=== PATIENT | male | born 1955 ===

== ENCOUNTER 2018-10-01 12:22 | Inpatient (IN) | payer OTHER ==
--- NOTE | 2018-10-01 13:36 | US ---
Right lower extremity ultrasound. Indication: Rule out DVT Technique: Duplex ultrasound evaluation of the right lower extremity Comparison: None available Findings: There is normal flow, compressibility, and augmentation of the right common femoral, femoral, and popliteal veins. Right posterior tibial veins appear patent. Soft tissue edema. Impression: Soft tissue edema. No evidence of deep venous thrombosis in the right lower extremity.
[2018-10-01 13:58] LABS: BASO % 0.3 % (0.0-2.0); EOS # 0.1 K/uL (0.0-0.7); EOS % 1.2 % (0.0-4.0); HEMOGLOBIN 10.6 g/dL (12.0-18.0); LYMPH # 0.7 K/uL (1.0-4.3); LYMPH % 13.1 % (20.0-40.0); MEAN CELL VOLUME 98.1 fl (80.0-94.0); MEAN CORPUSCULAR HEMOGLOBIN 32.8 pg (27.0-31.0); MEAN CORPUSCULAR HGB CONC 33.5 g/dL (33.0-37.0); MEAN PLATELET VOLUME 8.3 fl (7.2-11.7); MONO # 0.4 K/uL (0.0-0.8); NEUT % 77.4 % (50.0-75.0); NRBC % 0.1 % (0.0-0.0); RBC 3.23 Mil/uL (4.40-5.90); RED CELL DISTRIBUTION WIDTH 15.1 % (11.5-14.5); WHITE BLOOD COUNT 5.1 K/uL (4.8-10.8)
[2018-10-01 14:01] LABS: INR 1.4; PROTHROMBIN TIME 15.8 Seconds (9.8-13.1)
[2018-10-01 14:03] LABS: PARTIAL THROMBOPLASTIN TIME 31.4 Seconds (25.6-37.1)
[2018-10-01 14:05] LABS: URINE BILIRUBIN NEGATIVE (NEGATIVE); URINE BLOOD NEGATIVE (NEGATIVE); URINE CLARITY CLEAR (Clear); URINE COLOR STRAW (YELLOW); URINE GLUCOSE (UA) NEG (Normal); URINE LEUKOCYTE ESTERASE NEG Leu/uL (Negative); URINE PROTEIN NEGATIVE (NEGATIVE); URINE UROBILINOGEN 0.2-1.0 mg/dL (0.2-1.0)
[2018-10-01 14:14] LABS: ALB/GLOB RATIO 0.9 (1.0-2.1); ALT/SGPT 51 U/L (21-72); AST/SGOT 29 U/L (17-59); BLOOD UREA NITROGEN 26 mg/dl (9-20); CALCIUM 8.4 mg/dL (8.4-10.2); GFR NON-AFRICAN AMERICAN > 60
--- NOTE | 2018-10-01 14:53 | ED PDOC ---
Lower Extremity Pain/Injury Time Seen by Provider: 10/01/18 12:29 Chief Complaint (Nursing): Lower Extremity Problem/Injury Chief Complaint (Provider): Lower Extremity Problem/Injury History Per: Patient History/Exam Limitations: no limitations Onset/Duration Of Symptoms: Days (x1 day ) Current Symptoms Are (Timing): Still Present Pain Scale Rating Of: 5 Additional Complaint(s): Nabor Schaeffer is 63 year old male with no past medical history, who presents to the emergency department after being sent by Dr. Boss due to new onset of redness and pain to the right lower extremity. Patient's family is bedside, who stated that patient noticed swelling to the legs yesterday, x1 day ago, associated with pain when ambulating. He rates the pain as a 5/10 that is worsened when walking. Family states that prior to yesterday, symptoms were fine. Patient has a note from the doctor who states that he is being sent to rule out hepatorenal syndrome vs. cellulitis. Patient denies having any chest pain, shortness of breath, fever, nausea, vomiting, or any other new symptoms. PMD: Dean Boss Past Medical History Reviewed: Historical Data, Nursing Documentation, Vital Signs Vital Signs: Last Vital Signs Temp 98.0 F 10/01/18 12:24 Pulse 82 10/01/18 12:24 Resp 20 10/01/18 12:24 BP 88/58 L 10/01/18 12:24 Pulse Ox 97 10/01/18 12:24 - Medical History PMH: No Chronic Diseases - Surgical History Surgical History: No Surg Hx - Family History Family History: States: Unknown Family Hx - Home Medications Home Medications: Ambulatory Orders Medication Instructions Recorded Acidoph/L.bulg/Bif.b/S.thermop 1 tab PO BID 10/01/18 [Bacid Caplet] Furosemide [Lasix] 40 mg PO BID 10/01/18 Hydroxyzine HCl 25 mg PO Q6 PRN 10/01/18 Multivitamin [Multi-Vitamin Daily] 1 tab PO DAILY 10/01/18 RX: Ferrous Sulfate [Ferosul] 325 mg PO Q8 10/01/18 RX: Spironolactone [Aldactone] 50 mg PO BID 10/01/18 RX: Ursodiol [Zohra] 250 mg PO Q6 10/01/18 RX: Vitamin B Complex [Super B-50 1 cap PO DAILY 10/01/18 Complex] S-Adenosylmethionine Sul Tosyl 400 mg PO DAILY 10/01/18 [Dandy-E] Tamsulosin [Flomax] 0.4 mg PO QPM 10/01/18 Zolpidem [Ambien] 10 mg PO HS 10/01/18 - Allergies Allergies/Adverse Reactions: Allergies Allergy/AdvReac Type Severity Reaction Status Date / Time No Known Allergies Allergy Verified 10/01/18 12:27 Review of Systems ROS Statement: Except As Marked, All Systems Reviewed And Found Negative Constitutional: Negative for: Fever Cardiovascular: Negative for: Chest Pain Respiratory: Negative for: Shortness of Breath Gastrointestinal: Negative for: Nausea, Vomiting Musculoskeletal: Positive for: Other (Redness, pain, and swelling to the RLE) Physical Exam - Reviewed Nursing Documentation Reviewed: Yes Vital Signs Reviewed: Yes - Physical Exam Appears: Positive for: Well, No Acute Distress Head Exam: Positive for: ATRAUMATIC, NORMOCEPHALIC Cardiovascular/Chest: Positive for: Regular Rate, Rhythm. Negative for: Murmur Respiratory: Positive for: Normal Breath Sounds. Negative for: Respiratory Distress Pulses-Dorsalis Pedis (L): 2+ Pulses-Dorsalis Pedis (R): 2+ Pulses-Post. Tibialis (L): 2+ Pulses-Post. Tibialis (R): 2+ Gastrointestinal/Abdominal: Positive for: Normal Exam, Soft. Negative for: Tenderness Extremity: Positive for: Tenderness (right lowe extremtiy; (-) ttp behind the knee ), Swelling (Right lower extremity), Other (erythema on right lower extremity extending from medial malleolus to knee and is worse on the medial anterior leg) - Laboratory Results Result Diagrams: 10/01/18 13:30 10/01/18 13:30 - ECG O2 Sat by Pulse Oximetry: 97 (RA) Pulse Ox Interpretation: Normal Medical Decision Making Medical Decision Making: Initial time: 12:37 A/P: Patient was sent for referral for most likely cellulitis. Provider will send out for Ultrasound to rule out DVT and labs. Patient will be admitted to Dr. Tomlinson once results are back. Plan: --EKG --Blood culture --Albumin --CMP --CBC with differential --PTT --PT --Urinalysis --Duplex Lower extremity vein right US Time: 13:32 US Findings: There is normal flow, compressibility, and augmentation of the right common femoral, femoral, and popliteal veins. Right posterior tibial veins appear patent. Soft tissue edema. Impression: Soft tissue edema. No evidence of deep venous thrombosis in the right lower extremity. ---- Labs WNL. Pt started on antibiotics. US showed no evidence of DVT. Cultures pending. Spoke with Dr. Tomlinson and pt to be admitted and will get follow up with infectious disease on the floors. Scribe Attestation: Documented by Dilshad Pa , acting as a scribe for Ashley Pineda MD Provider Scribe Attestation: All medical record entries made by the Scribe were at my direction and personally dictated by me. I have reviewed the chart and agree that the record accurately reflects my personal performance of the history, physical exam, medical decision making, and the department course for this patient Disposition - Clinical Impression Clinical Impression: Cellulitis - Disposition Disposition Time: 16:45 Condition: GUARDED
[2018-10-01] MEDS ORDERED: Vancomycin 1 g Inj ONE (16:21)
[2018-10-01] MEDS ORDERED: Alum-Mag Hydrox-Simethicone Susp (30 mL) PO PRN (16:46)
--- NOTE | 2018-10-01 19:16 | CP.PCM.PN ---
Subjective - Date & Time of Evaluation Date of Evaluation: 10/01/18 Time of Evaluation: 19:16 - Subjective Subjective: I D NOTE INITIAL ANTIBIOTIC ORDERS GIVEN FULL CONSULT TO FOLLOW Objective - Vital Signs/Intake and Output Vital Signs (last 24 hours): Temp Pulse Resp BP Pulse Ox 98.0 F 82 20 88/58 L 97 10/01/18 12:24 10/01/18 12:24 10/01/18 12:24 10/01/18 12:24 10/01/18 15:46 - Medications Medications: Current Medications Acetaminophen (Tylenol 325mg Tab) 650 mg PO Q4 PRN PRN Reason: Pain, moderate (4-7) Al Hydrox/Mg Hydrox/Simethicone (Maalox Plus 30 Ml) 30 ml PO DAILY PRN PRN Reason: Indigestion / Heartburn Docusate Sodium (Colace) 100 mg PO DAILY PRN PRN Reason: Constipation Ferrous Sulfate (Feosol) 325 mg PO Q8 [facility] Furosemide (Lasix) 40 mg PO BID [facility] Home Med (S-Adenosylmethionine Sul Tosyl [Dandy-E]) 400 mg PO DAILY [facility] Home Med (Ursodiol [Zohra]) 250 mg PO Q6 [facility] Home Med (Vitamin B Complex [Super B-50 Complex]) 1 cap PO DAILY [facility] Hydroxyzine HCl (Atarax) 25 mg PO Q6 PRN PRN Reason: Itching / Pruritus Clindamycin Phosphate 600 mg/ (Sodium Chloride) 54 mls @ 54 mls/hr IVPB Q8 [facility]; Protocol Ibuprofen (Motrin Tab) 400 mg PO Q6 PRN PRN Reason: Fever >101 F Multivitamins/Minerals (Therapeutic-M Tab) 1 tab PO DAILY [facility] Ondansetron HCl (Zofran Inj) 4 mg IVP Q4 PRN PRN Reason: Nausea/Vomiting Spironolactone (Aldactone) 50 mg PO BID [facility] Tamsulosin HCl (Flomax) 0.4 mg PO QPM [facility] Zolpidem Tartrate (Ambien) 5 mg PO HS [facility] - Labs Labs: 10/01/18 13:30 10/01/18 13:30 PT 15.8 Seconds (9.8-13.1) H 10/01/18 13:30 INR 1.4 10/01/18 13:30 APTT 31.4 Seconds (25.6-37.1) 10/01/18 13:30
[2018-10-01] MEDS: Clindamycin 600mg/50ml NS 600 MG/50 ML BAG IVPB SCH (20:25)
--- NOTE | 2018-10-01 20:31 | CARD ---
APPROVED REPORT Date of service: 10/01/2018 EKG Measurement Heart [id number] <Conclusion> Normal sinus rhythm Left axis deviation Low voltage QRS Abnormal ECG
[2018-10-01] MEDS: Cefepime 1 GM in Sodium Chloride 0.9% 100 ML IVPB SCH (23:02)
[2018-10-02] MEDS: Clindamycin 600mg/50ml NS 600 MG/50 ML BAG IVPB SCH (02:53)
[2018-10-02] MEDS: Clindamycin 600mg/50ml D5W 600 MG/50 ML VIAL IVPB SCH ×3 (02:57→17:53)
[2018-10-02 06:57] LABS: BASO % 0.4 % (0.0-2.0); EOS # 0.1 K/uL (0.0-0.7); EOS % 1.6 % (0.0-4.0); HEMOGLOBIN 9.5 g/dL (12.0-18.0); LYMPH # 0.7 K/uL (1.0-4.3); LYMPH % 13.7 % (20.0-40.0); MEAN CORPUSCULAR HEMOGLOBIN 32.3 pg (27.0-31.0); MEAN CORPUSCULAR HGB CONC 33.6 g/dL (33.0-37.0); MEAN PLATELET VOLUME 8.4 fl (7.2-11.7); MONO # 0.4 K/uL (0.0-0.8); MONO % 7.8 % (0.0-10.0); NEUT # 3.8 K/uL (1.8-7.0); NEUT % 76.5 % (50.0-75.0); NRBC % 0.1 % (0.0-0.0); RBC 2.94 Mil/uL (4.40-5.90); WHITE BLOOD COUNT 4.9 K/uL (4.8-10.8)
[2018-10-02 07:07] LABS: ALB/GLOB RATIO 0.8 (1.0-2.1); ALBUMIN 2.5 g/dL (3.5-5.0); ALT/SGPT 42 U/L (21-72); AST/SGOT 25 U/L (17-59); BLOOD UREA NITROGEN 23 mg/dl (9-20); CALCIUM 7.8 mg/dL (8.4-10.2); GFR NON-AFRICAN AMERICAN > 60
[2018-10-02] MEDS ORDERED: Patient's Own Med (Vitamin B Complex [Super B-50 Complex] 1 CAP) PO SCH (09:00)
[2018-10-02] MEDS: Cefepime 1 GM in Sodium Chloride 0.9% 100 ML IVPB SCH (09:57)
[2018-10-02] MEDS: Multivitamin With Minerals Tab PO SCH (10:00)
--- NOTE | 2018-10-02 11:18 | CP.PCM.HP ---
<Cornelius Cote - Last Filed: 10/02/18 12:22> History of Present Illness - History of Present Illness History of Present Illness: 63 y/o M with a PMHx of liver cirrhosis and HTN was admitted for evaluation and management of right lower leg cellulitis. Pt was sent to ED by his PCP for RLE e xtremity swellign and redness. Pt explains that redness began 3 days ago, has aggravated rapidly and became painful especially with walking. --Today, pt was seen and examined by bharathi with Dr Tomlinson. Pt reports RLE pain is mild and tolerable. Pt complains of abdominal pain and distension. Pt reports having his last abdominal paracentesis 2-3 years ago. Pt aso reports not having a bowel movement for 2 days. Pt afebrile, tolerating PO with NO acute events overnight. PMD: Dean Marin PMHx: Alcoholic liver cirrhosis and HTN PSHx: appendectomy, cholecystectomy. SHx: last alcoholic intake 4 years ago. Pt stopped smoking 5 years ago. Present on Admission - Present on Admission Any Indicators Present on Admission: No Review of Systems - Constitutional Constitutional: absent: Chills, Fever - EENT Eyes: absent: Exophthalmos Nose/Mouth/Throat: absent: Nasal Congestion, Odynophagia, Sore Throat, Neck Pain, Neck Mass - Cardiovascular Cardiovascular: absent: Chest Pain, Claudication, Dyspnea, Palpitations - Respiratory Respiratory: absent: Cough, Dyspnea, Hemoptysis - Gastrointestinal Gastrointestinal: Abdominal Pain, Bloating, Constipation. absent: Hematemesis, Hematochezia, Nausea, Vomiting - Genitourinary Genitourinary: absent: Dysuria, Flank Pain, Hematuria Past Patient History - Infectious Disease Hx of Infectious Diseases: None Meds Allergies/Adverse Reactions: Allergies Allergy/AdvReac Type Severity Reaction Status Date / Time No Known Allergies Allergy Verified 10/01/18 12:27 Physical Exam - Constitutional Appears: No Acute Distress - Head Exam Head Exam: ATRAUMATIC, NORMAL INSPECTION - Eye Exam Eye Exam: EOMI - ENT Exam ENT Exam: Mucous Membranes Dry - Neck Exam Neck exam: Positive for: Full Rom, Normal Inspection. Negative for: Meningismus - Respiratory Exam Respiratory Exam: Decreased Breath Sounds (on RLL.), NORMAL BREATHING PATTERN. absent: Rhonchi, Wheezes - Cardiovascular Exam Cardiovascular Exam: +S1, +S2 - GI/Abdominal Exam GI & Abdominal Exam: Distended, Firm (mildly), Normal Bowel Sounds, Tenderness (mildly). absent: Guarding, Rebound - Extremities Exam Extremities exam: Positive for: pedal edema (bilaterally.). Negative for: calf tenderness, tenderness Additional comments: Presence of erythema covering almost the whole right pre-tibial area and exte nding to R foot, non-tender, pitting edema present. - Back Exam Back exam: absent: CVA tenderness (L), CVA tenderness (R) - Neurological Exam Neurological exam: Alert, Oriented x3 Results - Vital Signs Recent Vital Signs: Last Vital Signs Temp 98.4 F 10/02/18 06:54 Pulse 78 10/02/18 06:54 Resp 19 10/02/18 06:54 BP 104/72 10/02/18 09:59 Pulse Ox 98 10/02/18 06:54 - Labs Result Diagrams: 10/02/18 06:40 10/02/18 06:40 Labs: Laboratory Results - last 24 hr 10/01/18 10/01/18 10/01/18 13:30 13:30 13:30 WBC 5.1 RBC 3.23 L Hgb 10.6 L Hct 31.6 L MCV 98.1 H MCH 32.8 H MCHC 33.5 RDW 15.1 H Plt Count 98 L MPV 8.3 Neut % (Auto) 77.4 H Lymph % (Auto) 13.1 L [place] % (Auto) 8.0 Eos % (Auto) 1.2 Baso % (Auto) 0.3 Neut # (Auto) 4.0 Lymph # (Auto) 0.7 L [place] # (Auto) 0.4 Eos # (Auto) 0.1 Baso # (Auto) 0.0 PT 15.8 H INR 1.4 APTT 31.4 Sodium 130 L Potassium 4.2 Chloride 95 L Carbon Dioxide 28 Anion Gap 11 BUN 26 H Creatinine 1.0 Est GFR ( Amer) > 60 Est GFR (Non-Af Amer) > 60 Random Glucose 116 H Calcium 8.4 Total Bilirubin 0.6 AST 29 ALT 51 Alkaline Phosphatase 122 Ammonia Total Protein 6.3 Albumin 3.0 L Globulin 3.3 Albumin/Globulin Ratio 0.9 L Urine Color Urine Clarity Urine pH Ur Specific [place] Urine Protein Urine Glucose (UA) Urine Ketones Urine Blood Urine Nitrate Urine Bilirubin Urine Urobilinogen Ur Leukocyte Esterase Urine RBC (Auto) Urine Microscopic WBC 10/01/18 10/01/18 10/02/18 13:57 20:28 06:40 WBC 4.9 RBC 2.94 L Hgb 9.5 L Hct 28.2 L MCV 96.0 H D MCH 32.3 H MCHC 33.6 RDW 15.0 H Plt Count 90 L MPV 8.4 Neut % (Auto) 76.5 H Lymph % (Auto) 13.7 L [place] % (Auto) 7.8 Eos % (Auto) 1.6 Baso % (Auto) 0.4 Neut # (Auto) 3.8 Lymph # (Auto) 0.7 L [place] # (Auto) 0.4 Eos # (Auto) 0.1 Baso # (Auto) 0.0 PT INR APTT Sodium Potassium Chloride Carbon Dioxide Anion Gap BUN Creatinine Est GFR ( Amer) Est GFR (Non-Af Amer) Random Glucose Calcium Total Bilirubin AST ALT Alkaline Phosphatase Ammonia 26 Total Protein Albumin Globulin Albumin/Globulin Ratio Urine Color Straw Urine Clarity Clear Urine pH 6.0 Ur Specific [place] 1.010 Urine Protein Negative Urine Glucose (UA) Neg Urine Ketones Negative Urine Blood Negative Urine Nitrate Negative Urine Bilirubin Negative Urine Urobilinogen 0.2-1.0 Ur Leukocyte Esterase Neg Urine RBC (Auto) < 1 Urine Microscopic WBC < 1 10/02/18 06:40 WBC RBC Hgb Hct MCV MCH MCHC RDW Plt Count MPV Neut % (Auto) Lymph % (Auto) [place] % (Auto) Eos % (Auto) Baso % (Auto) Neut # (Auto) Lymph # (Auto) [place] # (Auto) Eos # (Auto) Baso # (Auto) PT INR APTT Sodium 131 L Potassium 4.6 Chloride 97 L Carbon Dioxide 28 Anion Gap 11 BUN 23 H Creatinine 0.8 Est GFR ( Amer) > 60 Est GFR (Non-Af Amer) > 60 Random Glucose 160 H Calcium 7.8 L Total Bilirubin 0.5 AST 25 ALT 42 Alkaline Phosphatase 106 Ammonia Total Protein 5.6 L Albumin 2.5 L Globulin 3.2 Albumin/Globulin Ratio 0.8 L Urine Color Urine Clarity Urine pH Ur Specific [place] Urine Protein Urine Glucose (UA) Urine Ketones Urine Blood Urine Nitrate Urine Bilirubin Urine Urobilinogen Ur Leukocyte Esterase Urine RBC (Auto) Urine Microscopic WBC Assessment & Plan - Assessment and Plan (Free Text) Assessment: 63 y/o M with a PMHx of liver cirrhosis and HTN was admitted for evaluation and management of right lower leg cellulitis. -Complained of abdominal discomfort and constipation today. Decreased breath sounds on RLL. PLAN --Afebrile --Lactulose PO --CT of chest, abdomen and pelvis. --Considering Paracentesis. --On IV Cefepime --F/U Blood culture --ID Consult, Dr Angela --Home meds resumed --Continue management as ordered. - Date & Time Date: 10/02/18 Time: 11:00 <Hank Tomlinson - Last Filed: 10/07/18 07:38> Results - Vital Signs Recent Vital Signs: Last Vital Signs Temp 98.2 F 10/07/18 01:04 Pulse 77 10/07/18 01:04 Resp 18 10/07/18 01:04 BP 107/76 10/07/18 01:04 Pulse Ox 97 10/07/18 01:04 - Labs Result Diagrams: 10/06/18 10:24 10/06/18 10:24 Labs: Laboratory Results - last 24 hr 10/04/18 10/04/18 10/04/18 11:08 15:48 21:45 WBC RBC Hgb Hct MCV MCH MCHC RDW Plt Count Sodium Potassium Chloride Carbon Dioxide Anion Gap BUN Creatinine Est GFR ( Amer) Est GFR (Non-Af Amer) POC Glucose (mg/dL) 285 H 200 H 151 H Random Glucose Calcium Total Bilirubin AST ALT Alkaline Phosphatase Total Protein Albumin Globulin Albumin/Globulin Ratio 10/05/18 10/05/18 10/05/18 06:10 10:55 15:37 WBC RBC Hgb Hct MCV MCH MCHC RDW Plt Count Sodium Potassium Chloride Carbon Dioxide Anion Gap BUN Creatinine Est GFR ( Amer) Est GFR (Non-Af Amer) POC Glucose (mg/dL) 148 H 337 H 252 H Random Glucose Calcium Total Bilirubin AST ALT Alkaline Phosphatase Total Protein Albumin Globulin Albumin/Globulin Ratio 10/05/18 10/06/18 10/06/18 22:11 05:54 10:24 WBC 4.4 L RBC 3.23 L Hgb 10.4 L Hct 31.5 L MCV 97.8 H D MCH 32.2 H MCHC 32.9 L RDW 15.2 H Plt Count 215 Sodium Potassium Chloride Carbon Dioxide Anion Gap BUN Creatinine Est GFR ( Amer) Est GFR (Non-Af Amer) POC Glucose (mg/dL) 153 H 181 H Random Glucose Calcium Total Bilirubin AST ALT Alkaline Phosphatase Total Protein Albumin Globulin Albumin/Globulin Ratio 10/06/18 10/06/18 10/06/18 10:24 11:05 15:36 WBC RBC Hgb Hct MCV MCH MCHC RDW Plt Count Sodium 128 L Potassium 5.0 Chloride 99 Carbon Dioxide 26 Anion Gap 8 L BUN 15 Creatinine 0.9 Est GFR ( Amer) > 60 Est GFR (Non-Af Amer) > 60 POC Glucose (mg/dL) 256 H 135 H Random Glucose 285 H Calcium 8.0 L Total Bilirubin 0.6 AST 48 ALT 52 Alkaline Phosphatase 178 H D Total Protein 6.1 L Albumin 2.7 L Globulin 3.5 Albumin/Globulin Ratio 0.8 L 10/06/18 21:17 WBC RBC Hgb Hct MCV MCH MCHC RDW Plt Count Sodium Potassium Chloride Carbon Dioxide Anion Gap BUN Creatinine Est GFR ( Amer) Est GFR (Non-Af Amer) POC Glucose (mg/dL) 382 H Random Glucose Calcium Total Bilirubin AST ALT Alkaline Phosphatase Total Protein Albumin Globulin Albumin/Globulin Ratio Assessment & Plan - Assessment and Plan (Free Text) Plan: I was present during evaluation and discussed with Dr Cote re plans of care and mgt Hank Tomlinson M.D.
--- NOTE | 2018-10-02 14:38 | CT ---
Date of service: 10/02/2018 PROCEDURE: CT Chest, Abdomen and Pelvis without intravenous contrast HISTORY: Cellulitis, cirrhosis. Chest pain. COMPARISON: None available. TECHNIQUE: Radiation dose: Total exam DLP = 658.93 mGy-cm. This CT exam was performed using one or more of the following dose reduction techniques: Automated exposure control, adjustment of the mA and/or kV according to patient size, and/or use of iterative reconstruction technique. FINDINGS: CT CHEST WITHOUT CONTRAST: LUNGS: Dependent atelectasis, linear scarring at the lung bases. No suspicious pulmonary nodules, masses or infiltrates otherwise identified.. MEDIASTINUM: Unremarkable. Normal caliber aorta and pulmonary arterial trunk. Normal size heart. LYMPH NODES: Unremarkable. PLEURA: Trace right pleural effusion. BONES: Unremarkable. OTHER FINDINGS: Small hiatal hernia. CT ABDOMEN AND PELVIS: LIVER: Cirrhotic appearing liver. Dilated intrahepatic and common bile duct. GALLBLADDER AND BILE DUCTS: Status post cholecystectomy. No abnormality is seen in the gallbladder fossa. PANCREAS: Atrophic pancreas, dilated pancreatic duct. The findings are nonspecific but can be seen with pancreatic neoplasm. The absence of oral and intravenous contrast precludes optimal assessment of the pancreatic head region. The common bile duct and intrahepatic bile ducts are dilated. SPLEEN: Unremarkable. ADRENALS: Unremarkable. No mass. KIDNEYS AND URETERS: Unremarkable. No hydronephrosis. No solid mass. VASCULATURE: Atherosclerotic calcification and mural plaque present. Findings are seen throughout the aorta No visible aneurysm. BOWEL: Constipation without fecal impaction or obstruction. APPENDIX: A normal appendix is not visible. PERITONEUM: Moderate volume abdominal and pelvic ascites. LYMPH NODES: Unremarkable. No enlarged lymph nodes. BLADDER: Unremarkable. REPRODUCTIVE: Unremarkable. BONES: No acute fracture. OTHER FINDINGS: None. IMPRESSION: Cirrhotic liver without focal hepatic mass. Atrophic pancreas with dilatation of the pancreatic duct. Dilatation of the common and intrahepatic biliary radicles. No focal pancreatic head mass identified. However the absence of intravenous contrast and to lesser extent oral contrast delineating the duodenum and proximal small bowel precludes meaningful assessment of pancreatic head mass. Contrast-enhanced CT, MRI or ultrasound may be beneficial for further evaluation. Moderate volume intra-abdominal and pelvic ascites. Additional benign and/or incidental findings described above.
--- NOTE | 2018-10-02 21:06 | CP.PCM.PN ---
Subjective - Date & Time of Evaluation Date of Evaluation: 10/02/18 Time of Evaluation: 20:52 - Subjective Subjective: I D NOTE PATIENT HAS NOT ARRIVED FROM ER YET HAS POSITIVE BLOOD CULTURES FOR GRAM POSITIVE COCCI IN CHAINS (LIKELY STREP) HAVE ORDERED F/U BLOOD CULTURES AND PROCALCITONIN LEVELS FOR PRESENT CONTINUE CLINDAMYCIN,WILL DISCONTINUE MAXIPEME,START ZOSYN, WILL AWAIT FURTHER CULTURE RESULTS Objective - Vital Signs/Intake and Output Vital Signs (last 24 hours): Temp Pulse Resp BP Pulse Ox 98.4 F 80 16 131/73 98 10/02/18 06:54 10/02/18 17:15 10/02/18 14:10 10/02/18 17:51 10/02/18 14:10 - Medications Medications: Current Medications Acetaminophen (Tylenol 325mg Tab) 650 mg PO Q4 PRN PRN Reason: Pain, moderate (4-7) Al Hydrox/Mg Hydrox/Simethicone (Maalox Plus 30 Ml) 30 ml PO DAILY PRN PRN Reason: Indigestion / Heartburn Docusate Sodium (Colace) 100 mg PO DAILY PRN PRN Reason: Constipation Ferrous Sulfate (Feosol) 325 mg PO Q8 [facility] Last Admin: 10/02/18 17:50 Dose: 325 mg Furosemide (Lasix) 40 mg PO BID [facility] Last Admin: 10/02/18 17:51 Dose: 40 mg Home Med (S-Adenosylmethionine Sul Tosyl [Dandy-E]) 400 mg PO DAILY [facility] Home Med (Ursodiol [Zohra]) 250 mg PO Q6 [facility] Home Med (Vitamin B Complex [Super B-50 Complex]) 1 cap PO DAILY [facility] Hydroxyzine HCl (Atarax) 25 mg PO Q6 PRN PRN Reason: Itching / Pruritus Last Admin: 10/02/18 10:01 Dose: 25 mg Cefepime HCl 1 gm/ Sodium (Chloride) 100 mls @ 100 mls/hr IVPB Q12 [facility]; Protocol Last Admin: 10/02/18 09:57 Dose: 100 mls/hr Clindamycin Phosphate (Cleocin) 600 mg in 50 mls @ 50 mls/hr IVPB Q8 [facility]; Protocol Last Admin: 10/02/18 17:53 Dose: 50 mls/hr Ibuprofen (Motrin Tab) 400 mg PO Q6 PRN PRN Reason: Fever >101 F Last Admin: 10/02/18 10:01 Dose: 400 mg Multivitamins/Minerals (Therapeutic-M Tab) 1 tab PO DAILY [facility] Last Admin: 10/02/18 10:00 Dose: 1 tab Ondansetron HCl (Zofran Inj) 4 mg IVP Q4 PRN PRN Reason: Nausea/Vomiting Spironolactone (Aldactone) 50 mg PO BID [facility] Last Admin: 10/02/18 17:50 Dose: 50 mg Tamsulosin HCl (Flomax) 0.4 mg PO QPM [facility] Last Admin: 10/02/18 17:50 Dose: 0.4 mg Zolpidem Tartrate (Ambien) 5 mg PO HS [facility] Last Admin: 10/01/18 23:03 Dose: Not Given - Labs Labs: 10/02/18 06:40 10/02/18 06:40 PT 15.8 Seconds (9.8-13.1) H 10/01/18 13:30 INR 1.4 10/01/18 13:30 APTT 31.4 Seconds (25.6-37.1) 10/01/18 13:30
[2018-10-02] MEDS: Piperacillin/Tazobact 3.375 GM in Sodium Chloride 0.9% 100 ML IVPB SCH (22:07)
[2018-10-02] MEDS ORDERED: Glucagon Recombinant 1 mg Inj IM PRN (22:42)
[2018-10-02] MEDS ORDERED: Dextrose 50% SYRINGE Inj (50 ml) IV PRN (22:42)
[2018-10-02] MEDS: URSODIOL 250 MG PO SCH ×2 (23:05→23:08)
[2018-10-02] MEDS: Insulin Lispro (humaLOG) 100 Units/ml Inj SC SCH (23:31)
[2018-10-03] MEDS: Clindamycin 600mg/50ml D5W 600 MG/50 ML VIAL IVPB SCH ×3 (01:19→16:20)
[2018-10-03] MEDS: URSODIOL 250 MG PO SCH ×4 (04:11→21:23)
[2018-10-03] MEDS: Piperacillin/Tazobact 3.375 GM in Sodium Chloride 0.9% 100 ML IVPB SCH ×3 (04:15→21:24)
[2018-10-03] MEDS ORDERED: Insulin Lispro (humaLOG) 100 Units/ml Inj SC SCH (07:30)
[2018-10-03] MEDS: Insulin Lispro (humaLOG) 100 Units/ml Inj SC SCH ×4 (09:22→21:24)
[2018-10-03] MEDS: Multivitamin With Minerals Tab PO SCH (09:22)
[2018-10-03] MEDS: S ADENOSYLMETHIONINE SUL TOSYL 400 MG PO SCH (09:26)
--- NOTE | 2018-10-03 16:50 | CP.PCM.PN ---
<Cornelius Cote - Last Filed: 10/03/18 16:47> Subjective - Date & Time of Evaluation Date of Evaluation: 10/03/18 Time of Evaluation: 10:27 - Subjective Subjective: 63 y/o M seen and examined by bedside with Dr Tomlinson. Pt reports feeling well, believes R lower leg erythema is the same. Pt dnies fever, chills, chest pain, SOB. Pt afebrile, tolerating PO with NO acute events overnight. Objective - Vital Signs/Intake and Output Vital Signs (last 24 hours): Temp Pulse Resp BP Pulse Ox 98.8 F 90 13 109/80 99 10/03/18 15:34 10/03/18 15:34 10/03/18 15:34 10/03/18 16:19 10/03/18 15:34 - Medications Medications: Current Medications Acetaminophen (Tylenol 325mg Tab) 650 mg PO Q4 PRN PRN Reason: Pain, moderate (4-7) Al Hydrox/Mg Hydrox/Simethicone (Maalox Plus 30 Ml) 30 ml PO DAILY PRN PRN Reason: Indigestion / Heartburn Dextrose (Dextrose 50% Inj) 0 ml IV STAT PRN; Protocol PRN Reason: Hypoglycemia Protocol Dextrose (Glutose 15) 0 gm PO ONCE PRN; Protocol PRN Reason: Hypoglycemia Protocol Docusate Sodium (Colace) 100 mg PO DAILY PRN PRN Reason: Constipation Ferrous Sulfate (Feosol) 325 mg PO Q8 [facility] [place] Last Admin: 10/03/18 16:18 Dose: 325 mg Furosemide (Lasix) 40 mg PO BID [facility] [place] Last Admin: 10/03/18 16:19 Dose: 40 mg Glucagon (Glucagen Diagnostic Kit) 0 mg IM STAT PRN; Protocol PRN Reason: Hypoglycemia Protocol Home Med (S-Adenosylmethionine Sul Tosyl [Dandy-E]) 400 mg PO DAILY [facility] [place] Last Admin: 10/03/18 09:26 Dose: 400 mg Home Med (Ursodiol [Zohra]) 250 mg PO Q6 [facility] [place] Last Admin: 10/03/18 15:17 Dose: 250 mg Home Med (Vitamin B Complex [Super B-50 Complex]) 1 cap PO DAILY [facility] [place] Hydroxyzine HCl (Atarax) 25 mg PO Q6 PRN PRN Reason: Itching / Pruritus Last Admin: 10/02/18 10:01 Dose: 25 mg Clindamycin Phosphate (Cleocin) 600 mg in 50 mls @ 50 mls/hr IVPB Q8 [facility] [place]; Protocol Last Admin: 10/03/18 16:20 Dose: 50 mls/hr Piperacillin Sod/Tazobactam (Sod 3.375 gm/ Sodium Chloride) 100 mls @ 100 mls/hr IVPB Q8H [facility] [place]; Protocol Last Admin: 10/03/18 12:31 Dose: 100 mls/hr Ibuprofen (Motrin Tab) 400 mg PO Q6 PRN PRN Reason: Fever >101 F Last Admin: 10/02/18 10:01 Dose: 400 mg Insulin Human Lispro (Humalog) 0 units SC ACHS [facility] [place]; Protocol Last Admin: 10/03/18 16:18 Dose: 2 units Multivitamins/Minerals (Therapeutic-M Tab) 1 tab PO DAILY [facility] [place] Last Admin: 10/03/18 09:22 Dose: 1 tab Ondansetron HCl (Zofran Inj) 4 mg IVP Q4 PRN PRN Reason: Nausea/Vomiting Spironolactone (Aldactone) 50 mg PO BID [facility] [place] Last Admin: 10/03/18 16:18 Dose: 50 mg Tamsulosin HCl (Flomax) 0.4 mg PO QPM [facility] [place] Last Admin: 10/02/18 17:50 Dose: 0.4 mg Zolpidem Tartrate (Ambien) 5 mg PO HS [facility] [place] Last Admin: 10/02/18 23:01 Dose: 5 mg - Labs Labs: 10/02/18 06:40 10/02/18 06:40 PT 15.8 Seconds (9.8-13.1) H 10/01/18 13:30 INR 1.4 10/01/18 13:30 APTT 31.4 Seconds (25.6-37.1) 10/01/18 13:30 - Additional Findings Additional findings: - Constitutional Appears: No Acute Distress - Head Exam Head Exam: ATRAUMATIC, NORMAL INSPECTION - Eye Exam Eye Exam: EOMI - ENT Exam ENT Exam: Mucous Membranes Dry - Neck Exam Neck exam: Positive for: Full Rom, Normal Inspection. Negative for: Meningismus - Respiratory Exam Respiratory Exam: Decreased Breath Sounds (on RLL.), NORMAL BREATHING PATTERN. absent: Rhonchi, Wheezes - Cardiovascular Exam Cardiovascular Exam: +S1, +S2 - GI/Abdominal Exam GI & Abdominal Exam: Distended, Firm (mildly), Normal Bowel Sounds, Tenderness (mildly). absent: Guarding, Rebound - Extremities Exam Extremities exam: Positive for: pedal edema (bilaterally.). Negative for: calf tenderness, tenderness Additional comments: Presence of erythema covering almost the whole right pre-tibial area and extending to R foot, non-tender, pitting edema present. - Back Exam Back exam: absent: CVA tenderness (L), CVA tenderness (R) - Neurological Exam Neurological exam: Alert, Oriented x3 Assessment and Plan - Assessment and Plan (Free Text) Assessment: 63 y/o M with a PMHx of liver cirrhosis and HTN was admitted for evaluation and management of right lower leg cellulitis. PLAN --Afebrile --CT of chest, abdomen and pelvis. Results reviewed. See report. No paracentesis for now. --On IV Clindamycin and Zosyn --Blood culture showing gram positive cocci. --ID on board Dr Angela --Home meds resumed --Continue management as ordered. Case discussed with Dr Tomlinson who agrees with the above JOCELINE Frederick PGY-2 <Hank Tomlinson - Last Filed: 10/07/18 07:39> Objective - Vital Signs/Intake and Output Vital Signs (last 24 hours): Temp Pulse Resp BP Pulse Ox 98.2 F 77 18 107/76 97 10/07/18 01:04 10/07/18 01:04 10/07/18 01:04 10/07/18 01:04 10/07/18 01:04 - Medications Medications: Current Medications Acetaminophen (Tylenol 325mg Tab) 650 mg PO Q4 PRN PRN Reason: Pain, moderate (4-7) Al Hydrox/Mg Hydrox/Simethicone (Maalox Plus 30 Ml) 30 ml PO DAILY PRN PRN Reason: Indigestion / Heartburn Last Admin: 10/04/18 03:20 Dose: 30 ml Dextrose (Dextrose 50% Inj) 0 ml IV STAT PRN; Protocol PRN Reason: Hypoglycemia Protocol Dextrose (Glutose 15) 0 gm PO ONCE PRN; Protocol PRN Reason: Hypoglycemia Protocol Docusate Sodium (Colace) 100 mg PO DAILY PRN PRN Reason: Constipation Last Admin: 10/05/18 08:43 Dose: 100 mg Ferrous Sulfate (Feosol) 325 mg PO Q8 [facility] [place] Last Admin: 10/07/18 01:29 Dose: 325 mg Furosemide (Lasix) 40 mg PO BID [facility] [place] Last Admin: 10/06/18 16:48 Dose: 40 mg Glucagon (Glucagen Diagnostic Kit) 0 mg IM STAT PRN; Protocol PRN Reason: Hypoglycemia Protocol Home Med (S-Adenosylmethionine Sul Tosyl [Dandy-E]) 400 mg PO DAILY [facility] [place] Last Admin: 10/06/18 09:47 Dose: 400 mg Home Med (Ursodiol [Zohra]) 250 mg PO Q6 [facility] [place] Last Admin: 10/07/18 04:30 Dose: 250 mg Home Med (Vitamin B Complex [Super B-50 Complex]) 1 cap PO DAILY [facility] [place] Hydroxyzine HCl (Atarax) 25 mg PO Q6 PRN PRN Reason: Itching / Pruritus Last Admin: 10/07/18 06:57 Dose: 25 mg Piperacillin Sod/Tazobactam (Sod 3.375 gm/ Sodium Chloride) 100 mls @ 100 mls/hr IVPB Q8H [facility] [place]; Protocol Last Admin: 10/07/18 04:30 Dose: 100 mls/hr Vancomycin HCl 1 gm/ Sodium (Chloride) 250 mls @ 166.667 mls/hr IVPB Q12@1030,2230 [facility] [place]; Protocol Last Admin: 10/06/18 21:49 Dose: 166.667 mls/hr Ibuprofen (Motrin Tab) 400 mg PO Q6 PRN PRN Reason: Fever >101 F Last Admin: 10/02/18 10:01 Dose: 400 mg Insulin Human Lispro (Humalog) 0 units SC ACHS [facility] [place]; Protocol Last Admin: 10/07/18 07:01 Dose: Not Given Multivitamins/Minerals (Therapeutic-M Tab) 1 tab PO DAILY [facility] [place] Last Admin: 10/06/18 09:47 Dose: 1 tab Ondansetron HCl (Zofran Inj) 4 mg IVP Q4 PRN PRN Reason: Nausea/Vomiting Spironolactone (Aldactone) 50 mg PO BID [facility] [place] Last Admin: 10/06/18 16:38 Dose: 50 mg Tamsulosin HCl (Flomax) 0.4 mg PO QPM [facility] [place] Last Admin: 10/06/18 17:51 Dose: 0.4 mg Zolpidem Tartrate (Ambien) 5 mg PO HS [facility] Last Admin: 10/06/18 22:00 Dose: 5 mg - Labs Labs: 10/06/18 10:24 10/06/18 10:24 PT 15.8 Seconds (9.8-13.1) H 10/01/18 13:30 INR 1.4 10/01/18 13:30 APTT 31.4 Seconds (25.6-37.1) 10/01/18 13:30 Assessment and Plan - Assessment and Plan (Free Text) Plan: I was present during evaluation and discussed with Dr Cote re plans of care and mgt. Hank Tomlinson M.D.
[2018-10-04] MEDS: Clindamycin 600mg/50ml D5W 600 MG/50 ML VIAL IVPB SCH ×3 (00:37→17:04)
[2018-10-04] MEDS: Piperacillin/Tazobact 3.375 GM in Sodium Chloride 0.9% 100 ML IVPB SCH ×3 (04:59→20:21)
[2018-10-04] MEDS: URSODIOL 250 MG PO SCH ×4 (05:00→21:42)
[2018-10-04 07:47] LABS: HEMOGLOBIN 10.1 g/dL (12.0-18.0); MEAN CELL VOLUME 95.1 fl (80.0-94.0); MEAN CORPUSCULAR HEMOGLOBIN 31.9 pg (27.0-31.0); MEAN CORPUSCULAR HGB CONC 33.5 g/dL (33.0-37.0); RBC 3.17 Mil/uL (4.40-5.90); RED CELL DISTRIBUTION WIDTH 14.9 % (11.5-14.5); WHITE BLOOD COUNT 5.7 K/uL (4.8-10.8)
[2018-10-04 08:05] LABS: ALB/GLOB RATIO 0.8 (1.0-2.1); ALBUMIN 2.6 g/dL (3.5-5.0); ALT/SGPT 44 U/L (21-72); AST/SGOT 32 U/L (17-59); BLOOD UREA NITROGEN 15 mg/dl (9-20); GFR NON-AFRICAN AMERICAN > 60
[2018-10-04] MEDS: S ADENOSYLMETHIONINE SUL TOSYL 400 MG PO SCH (08:47)
[2018-10-04] MEDS: Multivitamin With Minerals Tab PO SCH (08:49)
[2018-10-04] MEDS: Insulin Lispro (humaLOG) 100 Units/ml Inj SC SCH ×4 (08:58→21:46)
--- NOTE | 2018-10-04 17:29 | CP.PCM.PN ---
Subjective - Date & Time of Evaluation Date of Evaluation: 10/04/18 Time of Evaluation: 17:25 - Subjective Subjective: I D NOTE BLOOD CULTURE IS POSITIVE FOR STREP AND IS RESISTANT TO CLINDAMYCIN WILL DISCONTINUE AND START VANCOMYCIN CONTINUE ZYVOX Objective - Vital Signs/Intake and Output Vital Signs (last 24 hours): Temp Pulse Resp BP Pulse Ox 98.6 F 77 18 99/66 L 100 10/04/18 16:53 10/04/18 16:53 10/04/18 16:53 10/04/18 16:59 10/04/18 16:53 - Medications Medications: Current Medications Acetaminophen (Tylenol 325mg Tab) 650 mg PO Q4 PRN PRN Reason: Pain, moderate (4-7) Al Hydrox/Mg Hydrox/Simethicone (Maalox Plus 30 Ml) 30 ml PO DAILY PRN PRN Reason: Indigestion / Heartburn Last Admin: 10/04/18 03:20 Dose: 30 ml Dextrose (Dextrose 50% Inj) 0 ml IV STAT PRN; Protocol PRN Reason: Hypoglycemia Protocol Dextrose (Glutose 15) 0 gm PO ONCE PRN; Protocol PRN Reason: Hypoglycemia Protocol Docusate Sodium (Colace) 100 mg PO DAILY PRN PRN Reason: Constipation Last Admin: 10/04/18 08:52 Dose: 100 mg Ferrous Sulfate (Feosol) 325 mg PO Q8 [facility] Last Admin: 10/04/18 17:00 Dose: 325 mg Furosemide (Lasix) 40 mg PO BID [facility] Last Admin: 10/04/18 16:59 Dose: Not Given Glucagon (Glucagen Diagnostic Kit) 0 mg IM STAT PRN; Protocol PRN Reason: Hypoglycemia Protocol Home Med (S-Adenosylmethionine Sul Tosyl [Dandy-E]) 400 mg PO DAILY [facility] Last Admin: 10/04/18 08:47 Dose: 400 mg Home Med (Ursodiol [Zohra]) 250 mg PO Q6 [facility] Last Admin: 10/04/18 17:00 Dose: 250 mg Home Med (Vitamin B Complex [Super B-50 Complex]) 1 cap PO DAILY [facility] Hydroxyzine HCl (Atarax) 25 mg PO Q6 PRN PRN Reason: Itching / Pruritus Last Admin: 10/02/18 10:01 Dose: 25 mg Piperacillin Sod/Tazobactam (Sod 3.375 gm/ Sodium Chloride) 100 mls @ 100 mls/hr IVPB Q8H [facility]; Protocol Last Admin: 10/04/18 13:39 Dose: 100 mls/hr Vancomycin HCl 1 gm/ Sodium (Chloride) 250 mls @ 166.667 mls/hr IVPB Q12 [facility]; Protocol Ibuprofen (Motrin Tab) 400 mg PO Q6 PRN PRN Reason: Fever >101 F Last Admin: 10/02/18 10:01 Dose: 400 mg Insulin Human Lispro (Humalog) 0 units SC ACHS [facility]; Protocol Last Admin: 10/04/18 16:55 Dose: 3 units Multivitamins/Minerals (Therapeutic-M Tab) 1 tab PO DAILY [facility] Last Admin: 10/04/18 08:49 Dose: 1 tab Ondansetron HCl (Zofran Inj) 4 mg IVP Q4 PRN PRN Reason: Nausea/Vomiting Spironolactone (Aldactone) 50 mg PO BID [facility] Last Admin: 10/04/18 16:59 Dose: 50 mg Tamsulosin HCl (Flomax) 0.4 mg PO QPM [facility] Last Admin: 10/04/18 17:07 Dose: 0.4 mg Zolpidem Tartrate (Ambien) 5 mg PO HS [facility] Last Admin: 10/03/18 21:23 Dose: 5 mg - Labs Labs: 10/04/18 05:30 10/04/18 05:30 PT 15.8 Seconds (9.8-13.1) H 10/01/18 13:30 INR 1.4 10/01/18 13:30 APTT 31.4 Seconds (25.6-37.1) 10/01/18 13:30
[2018-10-05] MEDS: Piperacillin/Tazobact 3.375 GM in Sodium Chloride 0.9% 100 ML IVPB SCH ×3 (04:19→20:41)
[2018-10-05] MEDS: URSODIOL 250 MG PO SCH ×4 (04:19→21:15)
[2018-10-05] MEDS: Insulin Lispro (humaLOG) 100 Units/ml Inj SC SCH ×4 (07:00→22:24)
[2018-10-05] MEDS: Multivitamin With Minerals Tab PO SCH (08:42)
[2018-10-05] MEDS: S ADENOSYLMETHIONINE SUL TOSYL 400 MG PO SCH ×2 (08:44→08:45)
[2018-10-06] MEDS: URSODIOL 250 MG PO SCH ×5 (03:11→23:06)
[2018-10-06] MEDS: Piperacillin/Tazobact 3.375 GM in Sodium Chloride 0.9% 100 ML IVPB SCH ×3 (04:43→22:15)
[2018-10-06] MEDS: Insulin Lispro (humaLOG) 100 Units/ml Inj SC SCH ×4 (09:45→21:50)
[2018-10-06] MEDS: Multivitamin With Minerals Tab PO SCH (09:47)
[2018-10-06] MEDS: S ADENOSYLMETHIONINE SUL TOSYL 400 MG PO SCH (09:47)
[2018-10-06 10:36] LABS: HEMOGLOBIN 10.4 g/dL (12.0-18.0); MEAN CELL VOLUME 97.8 fl (80.0-94.0); MEAN CORPUSCULAR HEMOGLOBIN 32.2 pg (27.0-31.0); MEAN CORPUSCULAR HGB CONC 32.9 g/dL (33.0-37.0); RBC 3.23 Mil/uL (4.40-5.90); RED CELL DISTRIBUTION WIDTH 15.2 % (11.5-14.5); WHITE BLOOD COUNT 4.4 K/uL (4.8-10.8)
[2018-10-06 10:48] LABS: ALB/GLOB RATIO 0.8 (1.0-2.1); ALBUMIN 2.7 g/dL (3.5-5.0); ALT/SGPT 52 U/L (21-72); AST/SGOT 48 U/L (17-59); BLOOD UREA NITROGEN 15 mg/dl (9-20); GFR NON-AFRICAN AMERICAN > 60
--- NOTE | 2018-10-06 15:55 | CP.PCM.PN ---
Subjective - Date & Time of Evaluation Date of Evaluation: 10/06/18 Time of Evaluation: 16:00 - Subjective Subjective: iI D NOTE NEEDS AT LEAST 7 DAYS OF IV ANTBIOTICS FOLLOWED BY 10 DAYS OF ORAL ANTIBIOTICE(AEGMENTIN IS FINE Objective - Vital Signs/Intake and Output Vital Signs (last 24 hours): Temp Pulse Resp BP Pulse Ox 97.8 F 71 19 108/73 98 10/06/18 08:58 10/06/18 08:58 10/06/18 08:58 10/06/18 09:46 10/06/18 08:58 - Medications Medications: Current Medications Acetaminophen (Tylenol 325mg Tab) 650 mg PO Q4 PRN PRN Reason: Pain, moderate (4-7) Al Hydrox/Mg Hydrox/Simethicone (Maalox Plus 30 Ml) 30 ml PO DAILY PRN PRN Reason: Indigestion / Heartburn Last Admin: 10/04/18 03:20 Dose: 30 ml Dextrose (Dextrose 50% Inj) 0 ml IV STAT PRN; Protocol PRN Reason: Hypoglycemia Protocol Dextrose (Glutose 15) 0 gm PO ONCE PRN; Protocol PRN Reason: Hypoglycemia Protocol Docusate Sodium (Colace) 100 mg PO DAILY PRN PRN Reason: Constipation Last Admin: 10/05/18 08:43 Dose: 100 mg Ferrous Sulfate (Feosol) 325 mg PO Q8 [facility] Last Admin: 10/06/18 09:45 Dose: 325 mg Furosemide (Lasix) 40 mg PO BID [facility] Last Admin: 10/06/18 09:46 Dose: 40 mg Glucagon (Glucagen Diagnostic Kit) 0 mg IM STAT PRN; Protocol PRN Reason: Hypoglycemia Protocol Home Med (S-Adenosylmethionine Sul Tosyl [Dandy-E]) 400 mg PO DAILY [facility] Last Admin: 10/06/18 09:47 Dose: 400 mg Home Med (Ursodiol [Zohra]) 250 mg PO Q6 [facility] Last Admin: 10/06/18 09:47 Dose: 250 mg Home Med (Vitamin B Complex [Super B-50 Complex]) 1 cap PO DAILY [facility] Hydroxyzine HCl (Atarax) 25 mg PO Q6 PRN PRN Reason: Itching / Pruritus Last Admin: 10/02/18 10:01 Dose: 25 mg Piperacillin Sod/Tazobactam (Sod 3.375 gm/ Sodium Chloride) 100 mls @ 100 ml s/hr IVPB Q8H [facility]; Protocol Last Admin: 10/06/18 12:59 Dose: 100 mls/hr Vancomycin HCl 1 gm/ Sodium (Chloride) 250 mls @ 166.667 mls/hr IVPB Q12@1030,2230 [facility]; Protocol Last Admin: 10/06/18 11:15 Dose: 166.667 mls/hr Ibuprofen (Motrin Tab) 400 mg PO Q6 PRN PRN Reason: Fever >101 F Last Admin: 10/02/18 10:01 Dose: 400 mg Insulin Human Lispro (Humalog) 0 units SC ACHS [facility]; Protocol Last Admin: 10/06/18 12:59 Dose: 4 units Multivitamins/Minerals (Therapeutic-M Tab) 1 tab PO DAILY [facility] Last Admin: 10/06/18 09:47 Dose: 1 tab Ondansetron HCl (Zofran Inj) 4 mg IVP Q4 PRN PRN Reason: Nausea/Vomiting Spironolactone (Aldactone) 50 mg PO BID [facility] Last Admin: 10/06/18 09:45 Dose: 50 mg Tamsulosin HCl (Flomax) 0.4 mg PO QPM [facility] Last Admin: 10/05/18 17:00 Dose: 0.4 mg Zolpidem Tartrate (Ambien) 5 mg PO HS [facility] Last Admin: 10/05/18 21:13 Dose: 5 mg - Labs Labs: 10/06/18 10:24 10/06/18 10:24 PT 15.8 Seconds (9.8-13.1) H 10/01/18 13:30 INR 1.4 10/01/18 13:30 APTT 31.4 Seconds (25.6-37.1) 10/01/18 13:30
[2018-10-07] MEDS: URSODIOL 250 MG PO SCH ×5 (04:30→21:47)
[2018-10-07] MEDS: Piperacillin/Tazobact 3.375 GM in Sodium Chloride 0.9% 100 ML IVPB SCH ×3 (04:30→21:15)
[2018-10-07] MEDS: Insulin Lispro (humaLOG) 100 Units/ml Inj SC SCH ×4 (07:01→21:58)
--- NOTE | 2018-10-07 07:41 | CP.PCM.PN ---
Subjective - Date & Time of Evaluation Date of Evaluation: 10/04/18 Time of Evaluation: 18:00 - Subjective Subjective: patient is doing a lot better Has no chets pain or SOB afberile Noted decrease in redness on the leg Objective - Vital Signs/Intake and Output Vital Signs (last 24 hours): Temp Pulse Resp BP Pulse Ox 98.2 F 77 18 107/76 97 10/07/18 01:04 10/07/18 01:04 10/07/18 01:04 10/07/18 01:04 10/07/18 01:04 - Medications Medications: Current Medications Acetaminophen (Tylenol 325mg Tab) 650 mg PO Q4 PRN PRN Reason: Pain, moderate (4-7) Al Hydrox/Mg Hydrox/Simethicone (Maalox Plus 30 Ml) 30 ml PO DAILY PRN PRN Reason: Indigestion / Heartburn Last Admin: 10/04/18 03:20 Dose: 30 ml Dextrose (Dextrose 50% Inj) 0 ml IV STAT PRN; Protocol PRN Reason: Hypoglycemia Protocol Dextrose (Glutose 15) 0 gm PO ONCE PRN; Protocol PRN Reason: Hypoglycemia Protocol Docusate Sodium (Colace) 100 mg PO DAILY PRN PRN Reason: Constipation Last Admin: 10/05/18 08:43 Dose: 100 mg Ferrous Sulfate (Feosol) 325 mg PO Q8 [facility] Last Admin: 10/07/18 01:29 Dose: 325 mg Furosemide (Lasix) 40 mg PO BID [facility] Last Admin: 10/06/18 16:48 Dose: 40 mg Glucagon (Glucagen Diagnostic Kit) 0 mg IM STAT PRN; Protocol PRN Reason: Hypoglycemia Protocol Home Med (S-Adenosylmethionine Sul Tosyl [Dandy-E]) 400 mg PO DAILY [facility] Last Admin: 10/06/18 09:47 Dose: 400 mg Home Med (Ursodiol [Zohra]) 250 mg PO Q6 [facility] Last Admin: 10/07/18 04:30 Dose: 250 mg Home Med (Vitamin B Complex [Super B-50 Complex]) 1 cap PO DAILY [facility] Hydroxyzine HCl (Atarax) 25 mg PO Q6 PRN PRN Reason: Itching / Pruritus Last Admin: 10/07/18 06:57 Dose: 25 mg Piperacillin Sod/Tazobactam (Sod 3.375 gm/ Sodium Chloride) 100 mls @ 100 mls/hr IVPB Q8H [facility]; Protocol Last Admin: 10/07/18 04:30 Dose: 100 mls/hr Vancomycin HCl 1 gm/ Sodium (Chloride) 250 mls @ 166.667 mls/hr IVPB Q12@1030,2230 [facility]; Protocol Last Admin: 10/06/18 21:49 Dose: 166.667 mls/hr Ibuprofen (Motrin Tab) 400 mg PO Q6 PRN PRN Reason: Fever >101 F Last Admin: 10/02/18 10:01 Dose: 400 mg Insulin Human Lispro (Humalog) 0 units SC ACHS [facility]; Protocol Last Admin: 10/07/18 07:01 Dose: Not Given Multivitamins/Minerals (Therapeutic-M Tab) 1 tab PO DAILY [facility] Last Admin: 10/06/18 09:47 Dose: 1 tab Ondansetron HCl (Zofran Inj) 4 mg IVP Q4 PRN PRN Reason: Nausea/Vomiting Spironolactone (Aldactone) 50 mg PO BID [facility] Last Admin: 10/06/18 16:38 Dose: 50 mg Tamsulosin HCl (Flomax) 0.4 mg PO QPM [facility] Last Admin: 10/06/18 17:51 Dose: 0.4 mg Zolpidem Tartrate (Ambien) 5 mg PO HS [facility] Last Admin: 10/06/18 22:00 Dose: 5 mg - Labs Labs: 10/06/18 10:24 10/06/18 10:24 PT 15.8 Seconds (9.8-13.1) H 10/01/18 13:30 INR 1.4 10/01/18 13:30 APTT 31.4 Seconds (25.6-37.1) 10/01/18 13:30 - Eye Exam Eye Exam: Normal appearance - ENT Exam ENT Exam: Mucous Membranes Moist - Respiratory Exam Respiratory Exam: Clear to Ausculation Bilateral - Cardiovascular Exam Cardiovascular Exam: REGULAR RHYTHM - GI/Abdominal Exam GI & Abdominal Exam: Normal Bowel Sounds - Neurological Exam Neurological Exam: Awake, Oriented x3 - Skin Additional comments: decreased redness on the right leg Assessment and Plan (1) Cellulitis Status: Acute (2) Liver cirrhosis Status: Acute (3) Anemia Status: Acute (4) Bacteremia Status: Acute - Assessment and Plan (Free Text) Plan: cont meds Cont tx Cont meds cont iv antibiotics
--- NOTE | 2018-10-07 07:45 | CP.PCM.PN ---
Subjective - Date & Time of Evaluation Date of Evaluation: 10/05/18 Time of Evaluation: 11:00 - Subjective Subjective: patient is doing well Noted almost complete resolution of lef erythema Discussed with Dr Angela and wants at least a week of iv antibiotics due to positive blood C and S. Has no fever. ambulating well. Objective - Vital Signs/Intake and Output Vital Signs (last 24 hours): Temp Pulse Resp BP Pulse Ox 98.2 F 77 18 107/76 97 10/07/18 01:04 10/07/18 01:04 10/07/18 01:04 10/07/18 01:04 10/07/18 01:04 - Medications Medications: Current Medications Acetaminophen (Tylenol 325mg Tab) 650 mg PO Q4 PRN PRN Reason: Pain, moderate (4-7) Al Hydrox/Mg Hydrox/Simethicone (Maalox Plus 30 Ml) 30 ml PO DAILY PRN PRN Reason: Indigestion / Heartburn Last Admin: 10/04/18 03:20 Dose: 30 ml Dextrose (Dextrose 50% Inj) 0 ml IV STAT PRN; Protocol PRN Reason: Hypoglycemia Protocol Dextrose (Glutose 15) 0 gm PO ONCE PRN; Protocol PRN Reason: Hypoglycemia Protocol Docusate Sodium (Colace) 100 mg PO DAILY PRN PRN Reason: Constipation Last Admin: 10/05/18 08:43 Dose: 100 mg Ferrous Sulfate (Feosol) 325 mg PO Q8 [facility] Last Admin: 10/07/18 01:29 Dose: 325 mg Furosemide (Lasix) 40 mg PO BID [facility] Last Admin: 10/06/18 16:48 Dose: 40 mg Glucagon (Glucagen Diagnostic Kit) 0 mg IM STAT PRN; Protocol PRN Reason: Hypoglycemia Protocol Home Med (S-Adenosylmethionine Sul Tosyl [Dandy-E]) 400 mg PO DAILY [facility] Last Admin: 10/06/18 09:47 Dose: 400 mg Home Med (Ursodiol [Zohra]) 250 mg PO Q6 [facility] Last Admin: 10/07/18 04:30 Dose: 250 mg Home Med (Vitamin B Complex [Super B-50 Complex]) 1 cap PO DAILY [facility] Hydroxyzine HCl (Atarax) 25 mg PO Q6 PRN PRN Reason: Itching / Pruritus Last Admin: 10/07/18 06:57 Dose: 25 mg Piperacillin Sod/Tazobactam (Sod 3.375 gm/ Sodium Chloride) 100 mls @ 100 mls /hr IVPB Q8H [facility]; Protocol Last Admin: 10/07/18 04:30 Dose: 100 mls/hr Vancomycin HCl 1 gm/ Sodium (Chloride) 250 mls @ 166.667 mls/hr IVPB Q12@1030,2230 [facility]; Protocol Last Admin: 10/06/18 21:49 Dose: 166.667 mls/hr Ibuprofen (Motrin Tab) 400 mg PO Q6 PRN PRN Reason: Fever >101 F Last Admin: 10/02/18 10:01 Dose: 400 mg Insulin Human Lispro (Humalog) 0 units SC ACHS [facility]; Protocol Last Admin: 10/07/18 07:01 Dose: Not Given Multivitamins/Minerals (Therapeutic-M Tab) 1 tab PO DAILY [facility] Last Admin: 10/06/18 09:47 Dose: 1 tab Ondansetron HCl (Zofran Inj) 4 mg IVP Q4 PRN PRN Reason: Nausea/Vomiting Spironolactone (Aldactone) 50 mg PO BID [facility] Last Admin: 10/06/18 16:38 Dose: 50 mg Tamsulosin HCl (Flomax) 0.4 mg PO QPM [facility] Last Admin: 10/06/18 17:51 Dose: 0.4 mg Zolpidem Tartrate (Ambien) 5 mg PO HS [facility] Last Admin: 10/06/18 22:00 Dose: 5 mg - Labs Labs: 10/06/18 10:24 10/06/18 10:24 PT 15.8 Seconds (9.8-13.1) H 10/01/18 13:30 INR 1.4 10/01/18 13:30 APTT 31.4 Seconds (25.6-37.1) 10/01/18 13:30 - Head Exam Head Exam: NORMAL INSPECTION - Eye Exam Eye Exam: Normal appearance - ENT Exam ENT Exam: Mucous Membranes Moist - Respiratory Exam Respiratory Exam: Clear to Ausculation Bilateral - GI/Abdominal Exam GI & Abdominal Exam: Normal Bowel Sounds Assessment and Plan (1) Cellulitis Status: Acute (2) Liver cirrhosis Status: Acute (3) Anemia Status: Acute (4) Bacteremia Status: Acute - Assessment and Plan (Free Text) Plan: Cont meds cont iv antibiotics cont PT
--- NOTE | 2018-10-07 07:49 | CP.PCM.PN ---
Subjective - Date & Time of Evaluation Date of Evaluation: 10/06/18 Time of Evaluation: 11:00 - Subjective Subjective: Patient continues to do well has complete resolution of redness on the right leg Has no fever Objective - Vital Signs/Intake and Output Vital Signs (last 24 hours): Temp Pulse Resp BP Pulse Ox 98.2 F 77 18 107/76 97 10/07/18 01:04 10/07/18 01:04 10/07/18 01:04 10/07/18 01:04 10/07/18 01:04 - Medications Medications: Current Medications Acetaminophen (Tylenol 325mg Tab) 650 mg PO Q4 PRN PRN Reason: Pain, moderate (4-7) Al Hydrox/Mg Hydrox/Simethicone (Maalox Plus 30 Ml) 30 ml PO DAILY PRN PRN Reason: Indigestion / Heartburn Last Admin: 10/04/18 03:20 Dose: 30 ml Dextrose (Dextrose 50% Inj) 0 ml IV STAT PRN; Protocol PRN Reason: Hypoglycemia Protocol Dextrose (Glutose 15) 0 gm PO ONCE PRN; Protocol PRN Reason: Hypoglycemia Protocol Docusate Sodium (Colace) 100 mg PO DAILY PRN PRN Reason: Constipation Last Admin: 10/05/18 08:43 Dose: 100 mg Ferrous Sulfate (Feosol) 325 mg PO Q8 [facility], [facility] Last Admin: 10/07/18 01:29 Dose: 325 mg Furosemide (Lasix) 40 mg PO BID [facility], [facility] Last Admin: 10/06/18 16:48 Dose: 40 mg Glucagon (Glucagen Diagnostic Kit) 0 mg IM STAT PRN; Protocol PRN Reason: Hypoglycemia Protocol Home Med (S-Adenosylmethionine Sul Tosyl [Dandy-E]) 400 mg PO DAILY [facility], [facility] Last Admin: 10/06/18 09:47 Dose: 400 mg Home Med (Ursodiol [Zohra]) 250 mg PO Q6 [facility], [facility] Last Admin: 10/07/18 04:30 Dose: 250 mg Home Med (Vitamin B Complex [Super B-50 Complex]) 1 cap PO DAILY [facility] Hydroxyzine HCl (Atarax) 25 mg PO Q6 PRN PRN Reason: Itching / Pruritus Last Admin: 10/07/18 06:57 Dose: 25 mg Piperacillin Sod/Tazobactam (Sod 3.375 gm/ Sodium Chloride) 100 mls @ 100 mls/hr IVPB Q8H [facility], [facility]; Protocol Last Admin: 10/07/18 04:30 Dose: 100 mls/hr Vancomycin HCl 1 gm/ Sodium (Chloride) 250 mls @ 166.667 mls/hr IVPB Q12@1030,2230 [facility], [facility]; Protocol Last Admin: 10/06/18 21:49 Dose: 166.667 mls/hr Ibuprofen (Motrin Tab) 400 mg PO Q6 PRN PRN Reason: Fever >101 F Last Admin: 10/02/18 10:01 Dose: 400 mg Insulin Human Lispro (Humalog) 0 units SC ACHS [facility], [facility]; Protocol Last Admin: 10/07/18 07:01 Dose: Not Given Multivitamins/Minerals (Therapeutic-M Tab) 1 tab PO DAILY [facility] Last Admin: 10/06/18 09:47 Dose: 1 tab Ondansetron HCl (Zofran Inj) 4 mg IVP Q4 PRN PRN Reason: Nausea/Vomiting Spironolactone (Aldactone) 50 mg PO BID [facility] Last Admin: 10/06/18 16:38 Dose: 50 mg Tamsulosin HCl (Flomax) 0.4 mg PO QPM [facility] Last Admin: 10/06/18 17:51 Dose: 0.4 mg Zolpidem Tartrate (Ambien) 5 mg PO HS [facility] Last Admin: 10/06/18 22:00 Dose: 5 mg - Labs Labs: 10/06/18 10:24 10/06/18 10:24 PT 15.8 Seconds (9.8-13.1) H 10/01/18 13:30 INR 1.4 10/01/18 13:30 APTT 31.4 Seconds (25.6-37.1) 10/01/18 13:30 - Head Exam Head Exam: NORMAL INSPECTION - Eye Exam Eye Exam: Normal appearance - ENT Exam ENT Exam: Mucous Membranes Moist - Respiratory Exam Respiratory Exam: Clear to Ausculation Bilateral - Cardiovascular Exam Cardiovascular Exam: REGULAR RHYTHM - GI/Abdominal Exam GI & Abdominal Exam: Normal Bowel Sounds - Neurological Exam Neurological Exam: Awake, Oriented x3 Assessment and Plan (1) Cellulitis Status: Acute (2) Liver cirrhosis Status: Acute (3) Anemia Status: Acute (4) Bacteremia Status: Acute - Assessment and Plan (Free Text) Plan: Cont meds cont tx will complete 7 days of iv antibiotics prior to discharge due to positive blood C and S.
[2018-10-07] MEDS: S ADENOSYLMETHIONINE SUL TOSYL 400 MG PO SCH (10:01)
[2018-10-07] MEDS: Multivitamin With Minerals Tab PO SCH (10:01)
[2018-10-08 00:02] VITALS: RESP 20; O2SAT 95
[2018-10-08] MEDS: URSODIOL 250 MG PO SCH ×3 (03:57→09:45)
[2018-10-08] MEDS: Piperacillin/Tazobact 3.375 GM in Sodium Chloride 0.9% 100 ML IVPB SCH ×2 (05:21→13:02)
[2018-10-08 06:21] LABS: HEMOGLOBIN 10.1 g/dL (12.0-18.0); MEAN CELL VOLUME 95.7 fl (80.0-94.0); MEAN CORPUSCULAR HEMOGLOBIN 31.9 pg (27.0-31.0); MEAN CORPUSCULAR HGB CONC 33.4 g/dL (33.0-37.0); RBC 3.16 Mil/uL (4.40-5.90); RED CELL DISTRIBUTION WIDTH 15.5 % (11.5-14.5); WHITE BLOOD COUNT 4.9 K/uL (4.8-10.8)
[2018-10-08 06:26] LABS: BLOOD UREA NITROGEN 14 mg/dl (9-20); GFR NON-AFRICAN AMERICAN > 60
[2018-10-08 08:43] VITALS: PULSE 77; TEMP 98.4
[2018-10-08] MEDS: Insulin Lispro (humaLOG) 100 Units/ml Inj SC SCH ×2 (09:41→12:57)
[2018-10-08] MEDS: S ADENOSYLMETHIONINE SUL TOSYL 400 MG PO SCH (09:43)
[2018-10-08] MEDS: Multivitamin With Minerals Tab PO SCH (09:43)
[2018-10-08 09:44] VITALS: BP 107/76
--- NOTE | 2018-10-08 18:28 | CP.PCM.DIS ---
Provider - Provider Date of Admission: 10/01/18 16:23 Attending physician: Hank Tomlinson MD Primary care physician: Dean Marin Consults: ID: Dr Angela Time Spent in preparation of Discharge (in minutes): 33 Diagnosis - Discharge Diagnosis (1) Cellulitis Status: Acute Comment: of bilateral lower leg. --Improved. Hospital Course - Lab Results Lab Results: Micro Results 10/03/18 10:50 Blood Blood Culture - Final NO GROWTH AFTER 5 DAYS 10/03/18 10:50 Blood Gram Stain - Final TEST NOT PERFORMED 10/03/18 10:50 Blood Blood Culture - Final NO GROWTH AFTER 5 DAYS 10/03/18 10:50 Blood Gram Stain - Final TEST NOT PERFORMED 10/01/18 13:30 Blood-Venous S.aureus & Coag-Neg Staph PNA FISH - Final 10/01/18 13:30 Blood-Venous Blood Culture - Final Beta Hemolytic Strep Group B 10/01/18 13:30 Blood-Venous Gram Stain - Final Most Recent Lab Values WBC 4.9 K/uL (4.8-10.8) 10/08/18 05:35 RBC 3.16 Mil/uL (4.40-5.90) L 10/08/18 05:35 Hgb 10.1 g/dL (12.0-18.0) L 10/08/18 05:35 Hct 30.2 % (35.0-51.0) L 10/08/18 05:35 MCV 95.7 fl (80.0-94.0) H D 10/08/18 05:35 MCH 31.9 pg (27.0-31.0) H 10/08/18 05:35 MCHC 33.4 g/dL (33.0-37.0) 10/08/18 05:35 RDW 15.5 % (11.5-14.5) H 10/08/18 05:35 Plt Count 242 K/uL (130-400) 10/08/18 05:35 MPV 8.4 fl (7.2-11.7) 10/02/18 06:40 Neut % (Auto) 76.5 % (50.0-75.0) H 10/02/18 06:40 Lymph % (Auto) 13.7 % (20.0-40.0) L 10/02/18 06:40 [place] % (Auto) 7.8 % (0.0-10.0) 10/02/18 06:40 Eos % (Auto) 1.6 % (0.0-4.0) 10/02/18 06:40 Baso % (Auto) 0.4 % (0.0-2.0) 10/02/18 06:40 Neut # (Auto) 3.8 K/uL (1.8-7.0) 10/02/18 06:40 Lymph # (Auto) 0.7 K/uL (1.0-4.3) L 10/02/18 06:40 [place] # (Auto) 0.4 K/uL (0.0-0.8) 10/02/18 06:40 Eos # (Auto) 0.1 K/uL (0.0-0.7) 10/02/18 06:40 Baso # (Auto) 0.0 K/uL (0.0-0.2) 10/02/18 06:40 PT 15.8 Seconds (9.8-13.1) H 10/01/18 13:30 INR 1.4 10/01/18 13:30 APTT 31.4 Seconds (25.6-37.1) 10/01/18 13:30 Sodium 129 mmol/l (132-148) L 10/08/18 05:35 Potassium 4.4 MMOL/L (3.6-5.0) 10/08/18 05:35 Chloride 99 mmol/L (98-107) 10/08/18 05:35 Carbon Dioxide 27 mmol/L (22-30) 10/08/18 05:35 Anion Gap 7 (10-20) L 10/08/18 05:35 BUN 14 mg/dl (9-20) 10/08/18 05:35 Creatinine 0.8 mg/dl (0.8-1.5) 10/08/18 05:35 Est GFR ( Amer) > 60 10/08/18 05:35 Est GFR (Non-Af Amer) > 60 10/08/18 05:35 POC Glucose (mg/dL) 218 mg/dL (65-110) H 10/08/18 15:25 Random Glucose 146 mg/dL (75-110) H 10/08/18 05:35 Hemoglobin A1c 7.4 % (4.2-6.5) H 10/04/18 05:30 Calcium 8.0 mg/dL (8.4-10.2) L 10/08/18 05:35 Phosphorus 3.1 mg/dl (2.5-4.5) 10/04/18 05:30 Magnesium 2.1 MG/DL (1.6-2.3) 10/04/18 05:30 Total Bilirubin 0.6 mg/dl (0.2-1.3) 10/06/18 10:24 AST 48 U/L (17-59) 10/06/18 10:24 ALT 52 U/L (21-72) 10/06/18 10:24 Alkaline Phosphatase 178 U/L (38-126) H D 10/06/18 10:24 Ammonia 26 umo/L (16-60) 10/01/18 20:28 Total Protein 6.1 G/DL (6.3-8.2) L 10/06/18 10:24 Albumin 2.7 g/dL (3.5-5.0) L 10/06/18 10:24 Globulin 3.5 gm/dL (2.2-3.9) 10/06/18 10:24 Albumin/Globulin Ratio 0.8 (1.0-2.1) L 10/06/18 10:24 Alpha Fetoprotein 0.9 IU/mL (0.0-7.22) 10/04/18 12:50 Carcinoembryonic Ag 5.4 ng/mL (0-3.0) H 10/04/18 12:50 CA 19-9 Antigen 66.1 U/mL (0-37) H 10/04/18 12:50 Procalcitonin 0.27 NG/ML (0.19-0.49) 10/03/18 05:20 Urine Color Straw (YELLOW) 10/01/18 13:57 Urine Clarity Clear (Clear) 10/01/18 13:57 Urine pH 6.0 (5.0-8.0) 10/01/18 13:57 Ur Specific [place] 1.010 (1.003-1.030) 10/01/18 13:57 Urine Protein Negative mg/dL (NEGATIVE) 10/01/18 13:57 Urine Glucose (UA) Neg mg/dL (Normal) 10/01/18 13:57 Urine Ketones Negative mg/dL (NEGATIVE) 10/01/18 13:57 Urine Blood Negative (NEGATIVE) 10/01/18 13:57 Urine Nitrate Negative (NEGATIVE) 10/01/18 13:57 Urine Bilirubin Negative (NEGATIVE) 10/01/18 13:57 Urine Urobilinogen 0.2-1.0 mg/dL (0.2-1.0) 10/01/18 13:57 Ur Leukocyte Esterase Neg Subha/uL (Negative) 10/01/18 13:57 Urine RBC (Auto) < 1 /hpf (0-3) 10/01/18 13:57 Urine Microscopic WBC < 1 /hpf (0-5) 10/01/18 13:57 - Hospital Course Hospital Course: 63 y/o M with a PMHx of liver cirrhosis and HTN was admitted for evaluation and management of right lower leg cellulitis. Initail blood culture showed Group B streptococcus. 2 subsequent blood cultures were negative. Pt was further evalua ana by infectious disease specialist, who recommended 7 days of IV antibiotics (Vancomycin and Clindamycin) that was completed today and to discharged home with 10 days of Augmetin. Today, pt was seen and examined by bedside with Dr Grace, pt reported feeling well with remarkable improvement of R lower leg redness. Pt was afebrile, tolerating PO, stable, is discharged home later today. Pt instructed to follow up with PCP within 7 days. - Date & Time of H&P Date of H&P: 10/02/18 Time of H&P: 11:18 Discharge Exam - Head Exam Head Exam: NORMAL INSPECTION - Additional Findings Additional findings: - Head Exam Head Exam: NORMAL INSPECTION - Eye Exam Eye Exam: Normal appearance - ENT Exam ENT Exam: Mucous Membranes Moist - Respiratory Exam Respiratory Exam: Clear to Ausculation Bilateral - Cardiovascular Exam Cardiovascular Exam: REGULAR RHYTHM - GI/Abdominal Exam GI & Abdominal Exam: Normal Bowel Sounds - Neurological Exam Neurological Exam: Awake, Oriented x3 Discharge Plan - Discharge Medications Prescriptions: Amoxicillin/Clavulanate [Augmentin 875 MG-125 MG] 1 tab PO BID #20 tab - Follow Up Plan Condition: GUARDED Disposition: HOME/ ROUTINE Instructions: Cirrhosis (DC), Cellulitis (Skin Infection), Adult (DC) Additional Instructions: sonya trevino Dr. F. Gera dentro 1-2 semanas. terminar antibiotico justin indicado. Referrals: Dean Boss MD [Family Provider] - Pedro Angela MD [Medical Doctor] -
== END 2018-10-08 15:40 | disposition home or self-care (01) | DRG 603 ==
LOC: H.ER 12:22 → H.ERHOLD 16:23 → H.MEDSURG1 10-02 21:03
PROVIDERS: ADMIT Family Medicine; ATTEND Family Medicine
DX: L03.115 Cellulitis of right lower limb (principal); R78.81 Bacteremia; K70.30 Alcoholic cirrhosis of liver without ascites; I10 Essential (primary) hypertension; D64.9 Anemia, unspecified; K59.00 Constipation, unspecified; Z16.29 Resistance to other single specified antibiotic; Z87.891 Personal history of nicotine dependence

== ENCOUNTER 2018-11-21 18:54 | Inpatient (IN) | payer OTHER ==
[2018-11-21] MEDS ORDERED: Ciprofloxacin 400mg/200ml D5W 400 MG/200 ML BAG IV STA (19:14)
[2018-11-21] MEDS ORDERED: Sodium Chloride 0.9% 1,000 ML IV STA ×3 (19:15→22:35)
--- NOTE | 2018-11-21 19:48 | ED PDOC ---
HPI: Back Time Seen by Provider: 11/21/18 19:05 Chief Complaint (Nursing): Back Pain Chief Complaint (Provider): Back Pain History Per: Patient, Family (godson) History/Exam Limitations: no limitations Onset/Duration Of Symptoms: Days (x3) Current Symptoms Are (Timing): Still Present Additional Complaint(s): 63 year old male with pmHx of DM type II, HTN, liver cirrhosis, and renal colic, presents to ED with his godson for an evaluation of right-sided flank pain assoc iated with dysuria, bloody urine, and chills for 3 days. He denies fever, chills, nausea, vomiting, headache, chest pain, shortness of breath, abdominal pain, and dizziness. Patient was prescribed ciprofloxacin by his PCP earlier today after passing a kidney stone last night. His godson states that he was last well yesterday as he was returning from [place]. No additional medications were taken for relief. PCP: Dr. Dean Boss Past Medical History Reviewed: Historical Data, Nursing Documentation, Vital Signs Vital Signs: Last Vital Signs Temp 99.8 F H 11/21/18 19:00 Pulse 107 H 11/21/18 19:00 Resp 20 11/21/18 19:00 BP 75/50 L 11/21/18 19:00 Pulse Ox 97 11/21/18 19:00 - Medical History PMH: Asthma, Diabetes, Gall Bladder Disease, HTN, Kidney Stones Denies: HIV, Chronic Kidney Disease - Surgical History Surgical History: Cholecystectomy - Family History Family History: States: Unknown Family Hx - Immunization History Hx Tetanus Toxoid Vaccination: No Hx Influenza Vaccination: No Hx Pneumococcal Vaccination: No - Home Medications Home Medications: Ambulatory Orders Medication Instructions Recorded Acidoph/L.bulg/Bif.b/S.thermop 1 tab PO BID 10/01/18 [Bacid Caplet] Ferrous Sulfate [Ferosul] 325 mg PO Q8 10/01/18 Furosemide [Lasix] 40 mg PO BID 10/01/18 Hydroxyzine HCl 25 mg PO Q6 PRN 10/01/18 Multivitamin [Multi-Vitamin Daily] 1 tab PO DAILY 10/01/18 S-Adenosylmethionine Sul Tosyl 400 mg PO DAILY 10/01/18 [Dandy-E] Spironolactone [Aldactone] 50 mg PO BID 10/01/18 Tamsulosin [Flomax] 0.4 mg PO QPM 10/01/18 Ursodiol [Zohra] 250 mg PO Q6 10/01/18 Vitamin B Complex [Super B-50 1 cap PO DAILY 10/01/18 Complex] Zolpidem [Ambien] 10 mg PO HS 10/01/18 Amoxicillin/Clavulanate [Augmentin 1 tab PO BID #20 tab 10/08/18 875 MG-125 MG] - Allergies Allergies/Adverse Reactions: Allergies Allergy/AdvReac Type Severity Reaction Status Date / Time No Known Allergies Allergy Verified 11/21/18 19:00 Review of Systems ROS Statement: Except As Marked, All Systems Reviewed And Found Negative Constitutional: Positive for: Chills Cardiovascular: Negative for: Chest Pain Respiratory: Negative for: Shortness of Breath Gastrointestinal: Negative for: Nausea, Vomiting, Abdominal Pain Genitourinary Male: Positive for: Dysuria, Hematuria Musculoskeletal: Positive for: Back Pain (right flank) Neurological: Negative for: Headache, Dizziness Physical Exam - Reviewed Nursing Documentation Reviewed: Yes Vital Signs Reviewed: Yes - Physical Exam Appears: Positive for: Uncomfortable Head Exam: Positive for: ATRAUMATIC, NORMAL INSPECTION, NORMOCEPHALIC Skin: Positive for: Normal Color Eye Exam: Positive for: Normal appearance ENT: Positive for: Normal ENT Inspection Neck: Positive for: Normal, Painless ROM, Supple Cardiovascular/Chest: Positive for: Regular Rate, Rhythm, Chest Non Tender Respiratory: Positive for: Normal Breath Sounds. Negative for: Wheezing, Respiratory Distress Gastrointestinal/Abdominal: Positive for: Normal Exam, Soft. Negative for: Tenderness, Guarding, Rebound Back: Positive for: R CVA Tenderness. Negative for: L CVA Tenderness Extremity: Positive for: Normal ROM (upper/lower). Negative for: Pedal Edema (bilaterally) Neurologic/Psych: Positive for: Alert, Oriented. Negative for: Motor/Sensory Deficits - Laboratory Results Result Diagrams: 11/21/18 20:26 11/21/18 20:26 Interpretation Of Abn Labs: 13.5 wbc, lacate 2.3, bun 24 - ECG ECG: Positive for: Interpreted By Me, Viewed By Me ECG Rhythm: Positive for: Nonspecific Changes O2 Sat by Pulse Oximetry: 97 (RA) Pulse Ox Interpretation: Normal - Radiology X-Ray: Interpreted by Me, Viewed By Me X-Ray Interpretation: No Acute Disease - CT Scan/US ct Other Rad Studies (CT/US): Read By Radiologist Other Rad Interpretation: colitis, ascities - Progress ED Course And Treament: 1930: Will continue fluids to improve fluids. 1999: BP improving. Continue fluids. 940: Stable. Feels much better. Is uti, colitis, severe sepsis. Will tx accordingly. Spoke with Dr. Tomlinson. Will admit. Dr. Tomlinson will admit. - Critical Care Total Time (In Min): 30 Documented Critical Care: Time excludes all time spent performint seperately billable procedures Medical Decision Making Medical Decision Making: Initial Impression: Initial Plan: * Labs * CT ABD/pelvis * EKG * CXR * Cipro 400mg in 200ml IV * IV fluids * Blood culture * Urine culture Time: 2030 --Re-eval: patient reports improvement in symptoms. Scribe Attestation: Documented by Tiffani Hair, acting as a scribe for Roberto Carlos Peters MD. Provider Scribe Attestation: All medical record entries made by the Scribe were at my direction and personally dictated by me. I have reviewed the chart and agree that the record accurately reflects my personal performance of the history, physical exam, medical decision making, and the department course for this patient. I have also personally directed, reviewed, and agree with the discharge instructions and disposition. Disposition - Clinical Impression Clinical Impression: Severe sepsis, Dehydration, UTI (urinary tract infection), Colitis, Ascites - Patient ED Disposition Is Patient to be Admitted: Yes Counseled Patient/Family Regarding: Studies Performed, Diagnosis - Disposition Disposition Time: 21:43 Condition: GUARDED - Pt Status Changed To: Hospital Disposition Of: Inpatient - Admit Certification Admit to Inpatient:: After my assessment, the patient will require hospitalization for at least two midnights. This is because of the severity of symptoms shown, intensity of services needed, and/or the medical risk in this patient being treated as an outpatient. - POA Present On Arrival: None
[2018-11-21 20:04] LABS: VENOUS BLOOD GAS PCO2 37 mmHg (40-60); VENOUS BLOOD GAS PO2 40 mm/Hg (30-55); VENOUS BLOOD PH 7.48 (7.32-7.43)
[2018-11-21] MEDS ORDERED: Ciprofloxacin 400mg/200ml D5W 400 MG/200 ML BAG IVPB ONE (20:19)
[2018-11-21 20:33] LABS: BASO # 0.1 K/uL (0.0-0.2); BASO % 0.5 % (0.0-2.0); HEMOGLOBIN 11.5 g/dL (12.0-18.0); LYMPH # 0.6 K/uL (1.0-4.3); LYMPH % 4.3 % (20.0-40.0); MEAN CELL VOLUME 97.8 fl (80.0-94.0); MEAN CORPUSCULAR HGB CONC 33.8 g/dL (33.0-37.0); MEAN PLATELET VOLUME 9.4 fl (7.2-11.7); MONO # 1.2 K/uL (0.0-0.8); MONO % 9.2 % (0.0-10.0); NEUT # 11.6 K/uL (1.8-7.0); PLATELET COUNT 163 K/uL (130-400); RBC 3.47 Mil/uL (4.40-5.90); RED CELL DISTRIBUTION WIDTH 16.3 % (11.5-14.5); WHITE BLOOD COUNT 13.5 K/uL (4.8-10.8)
[2018-11-21 20:38] LABS: INR 1.5; PROTHROMBIN TIME 16.8 Seconds (9.8-13.1)
[2018-11-21 20:42] LABS: ALB/GLOB RATIO 0.9 (1.0-2.1); ALBUMIN 3.3 g/dL (3.5-5.0); ALT/SGPT 63 U/L (21-72); AST/SGOT 54 U/L (17-59); BLOOD UREA NITROGEN 24 mg/dl (9-20); CALCIUM 8.5 mg/dL (8.4-10.2); GFR NON-AFRICAN AMERICAN > 60
[2018-11-21] MEDS ORDERED: metroNIDAZOLE 500mg/100ml NS 100 ML IV STA (21:43)
[2018-11-21 21:55] LABS: SQUAMOUS EPITHIAL 2 /hpf (0-5); URINE BACTERIA MANY (<OCC); URINE BILIRUBIN NEGATIVE (NEGATIVE); URINE BLOOD SMALL (NEGATIVE); URINE GLUCOSE (UA) NEG (NEGATIVE); URINE PROTEIN 100 mg/dL (NEGATIVE); URINE UROBILINOGEN 0.2-1.0 mg/dL (0.2-1.0); WBC CLUMPS OCC /hpf
[2018-11-21 21:59] LABS: URINE CLARITY CLOUDY (Clear); URINE COLOR YELLOW (YELLOW); URINE LEUKOCYTE ESTERASE LARGE Leu/uL (Negative)
[2018-11-21] MEDS ORDERED: metroNIDAZOLE 500mg/100ml NS 100 ML IVPB ONE (22:10)
[2018-11-21 22:12] LABS: ANISOCYTOSIS SLIGHT; MONOCYTE 10 % (0-10); PLATELET ESTIMATE NORMAL (NORMAL); POIKILOCYTOSIS SLIGHT; TOTAL CELLS COUNTED 100
[2018-11-21 22:15] LABS: BANDS 11 % (0-2)
[2018-11-21 22:33] LABS: VENOUS BLOOD GAS BASE EXCESS -2.6 mmol/L (0.0-2.0); VENOUS BLOOD GAS PCO2 36 mmHg (40-60); VENOUS BLOOD GAS PO2 40 mm/Hg (30-55); VENOUS BLOOD PH 7.39 (7.32-7.43)
[2018-11-21 22:43] LABS: LYMPHOCYTE 3 % (20-50); NEUTROPHIL 76 % (42-75)
[2018-11-21] MEDS ORDERED: Insulin Regular 100 units/ml IV STA (23:52)
[2018-11-22] MEDS: Dextrose 5%/0.9% NS 1,000 ML IV SCH ×2 (06:46→16:49)
[2018-11-22 08:50] LABS: HEMOGLOBIN 10.6 g/dL (12.0-18.0); MEAN CELL VOLUME 100.9 fl (80.0-94.0); MEAN CORPUSCULAR HEMOGLOBIN 32.8 pg (27.0-31.0); MEAN CORPUSCULAR HGB CONC 32.5 g/dL (33.0-37.0); RBC 3.24 Mil/uL (4.40-5.90); RED CELL DISTRIBUTION WIDTH 16.5 % (11.5-14.5); WHITE BLOOD COUNT 13.2 K/uL (4.8-10.8)
[2018-11-22 08:58] LABS: ALB/GLOB RATIO 0.8 (1.0-2.1); ALBUMIN 2.8 g/dL (3.5-5.0); ALT/SGPT 51 U/L (21-72); AST/SGOT 42 U/L (17-59); BLOOD UREA NITROGEN 26 mg/dl (9-20); CALCIUM 8.2 mg/dL (8.4-10.2); GFR NON-AFRICAN AMERICAN > 60
[2018-11-22] MEDS ORDERED: [UNRECOGNIZED DRUG - OTHER] PO SCH (09:00)
[2018-11-22] MEDS ORDERED: INSULIN GLARGINE HUM REC ANLOG 10 UNIT SC SCH (09:00)
[2018-11-22] MEDS: Multivitamin Vitamin B Complex (Nephro-Vite) Tab PO SCH (09:18)
[2018-11-22] MEDS: Multivitamin With Minerals Tab PO SCH (09:19)
[2018-11-22] MEDS ORDERED: URSODIOL 250 MG PO SCH (10:00)
[2018-11-22] MEDS: Insulin Regular 100 units/ml SC SCH ×3 (13:06→21:50)
--- NOTE | 2018-11-22 16:34 | RAD ---
Date of service: 11/21/2018 HISTORY: Sepsis Patient COMPARISON: No prior. FINDINGS: LUNGS: Poor inspiration with low lung volumes, crowded bronchovascular markings, increased- coarsened interstitial with mild bibasilar atelectasis. PLEURA: No significant pleural effusion identified, no pneumothorax apparent. CARDIOVASCULAR: No aortic atherosclerotic calcification present. Normal cardiac size. No pulmonary vascular congestion. OSSEOUS STRUCTURES: No significant abnormalities. VISUALIZED UPPER ABDOMEN: Normal. OTHER FINDINGS: None. IMPRESSION: Poor inspiration with low lung volumes, crowded bronchovascular markings, increased- coarsened interstitial with mild bibasilar atelectasis.
[2018-11-22] MEDS: Lactobacillus Acidophilus 500 MU Cap PO SCH ×2 (17:06)
--- NOTE | 2018-11-22 18:07 | CT ---
Date of service: 11/21/2018 PROCEDURE: CT Abdomen and Pelvis with Oral contrast. HISTORY: Rule out stone COMPARISON: Comparison made with prior CT scan abdomen pelvis dated 10/02/2018. TECHNIQUE: Contiguous axial images of the abdomen and pelvis performed without oral or intravenous contrast material. Additional 2D sagittal and coronal sagittal reformats generated. Radiation dose: Total exam DLP = 388.4 mGy-cm. This CT exam was performed using one or more of the following dose reduction techniques: Automated exposure control, adjustment of the mA and/or kV according to patient size, and/or use of iterative reconstruction technique. FINDINGS: LOWER THORAX: Mild passive/dependent type atelectasis with ground-glass opacities both posterior lower lung foley. No effusion. No evidence of basilar pneumothorax. Heart appears mildly enlarged. No significant pericardial effusion. There is a large hiatal hernia again seen. LIVER: Liver exhibits a nodular contour surface contour consistent with underlying cirrhosis. There also appears to be moderate to fairly significant central intrahepatic biliary ductal dilatation. Dilatation of the common bile duct also felt to be present.. GALLBLADDER AND BILE DUCTS: Cholelithiasis. PANCREAS: Pancreas appears atrophic and fatty replaced with apparent marked dilatation of the entire pancreatic duct. SPLEEN: Spleen is upper limits of normal/borderline enlarged measuring nearly 13 cm in AP dimension.. ADRENALS: Mild adrenal enlargement. KIDNEYS AND URETERS: Kidneys demonstrate relatively symmetric size. No evidence of nephrolithiasis or hydronephrosis. BLADDER: Urinary bladder is thick-walled in appearance in part due to incomplete distention and probable muscular hypertrophy however other intrinsic/invasive wall lesion not excluded REPRODUCTIVE: . Prostate gland appears mildly enlarged measuring approximately for 3.5 cm in transverse dimension. APPENDIX: Appendix is not seen with any certainty on this study. Large amount of abdominal ascites and infiltration of the mesentery and omentum preclude evaluation BOWEL: Limits evaluation for acute appendicitis. Evaluation of the bowel is limited due to the lack of oral contrast and intravenous contrast material as well as large amount of abdominal and pelvic ascites. Infiltration of the mesentery due to abdominal ascites limits evaluation The stomach is incompletely distended with thick-walled appearance; rule out gastritis however other intrinsic/invasive wall lesion not excluded. There are multiple on fluid-filled loops of small bowel some of which are distended of with minor old wall thickening that could be secondary to the abdominal ascites however enteritis not excluded. Clinical correlation recommended. The colon contains a moderate amount of stool and air consistent with fecal retention/constipation. PERITONEUM: Large amount of abdominal and pelvic ascites... No gross free intraperitoneal air. LYMPH NODES: Evaluation for adenopathy is somewhat limited due to abdominal ascites and infiltration changes of the mesentery and omentum. VASCULATURE: Unremarkable. No aortic aneurysm. Mild aortic atherosclerotic calcification or mural plaque present. BONES: Mild multilevel degenerative spondylosis of the lower thoracic and lumbar spine. OTHER FINDINGS: None. IMPRESSION: Large hiatal hernia. Cardiomegaly. Findings consistent with underlying cirrhosis. Cholelithiasis deck made with the central intrahepatic and extrahepatic biliary ductal dilatation. The pancreas is atrophic with marked dilatation of the pancreatic duct. Consider follow-up MRCP Large amount of abdominal and pelvic ascites with infiltration changes of the mesentery and omentum. Multiple fluid-filled loops of small bowel some of which appear dilated and exhibit thick-walled appearance. Findings could be related to ascites with hypoalbuminemia however enteritis not excluded. Findings also consistent with constipation.
[2018-11-22] MEDS: Ciprofloxacin 400mg/200ml D5W 400 MG/200 ML BAG IVPB SCH (20:58)
[2018-11-22] MEDS: Insulin Detemir 100 Units/ml Inj SC SCH (21:52)
--- NOTE | 2018-11-22 23:12 | CARD ---
APPROVED REPORT Date of service: 11/21/2018 EKG Measurement Heart [id number] <Conclusion> Normal sinus rhythm Poor R wave progression Abnormal ECG
[2018-11-23] MEDS: metroNIDAZOLE 500mg/100ml NS 100 ML IVPB SCH ×3 (00:13→16:14)
[2018-11-23] MEDS: Dextrose 5%/0.9% NS 1,000 ML IV SCH (03:00)
[2018-11-23] MEDS: Insulin Regular 100 units/ml SC SCH ×4 (07:10→21:32)
[2018-11-23] MEDS: Multivitamin With Minerals Tab PO SCH (09:04)
[2018-11-23] MEDS: Multivitamin Vitamin B Complex (Nephro-Vite) Tab PO SCH (09:05)
[2018-11-23] MEDS: Ciprofloxacin 400mg/200ml D5W 400 MG/200 ML BAG IVPB SCH ×2 (09:09→21:23)
[2018-11-23] MEDS: Lactobacillus Acidophilus 500 MU Cap PO SCH ×2 (09:13→16:09)
[2018-11-23] MEDS: Insulin Detemir 100 Units/ml Inj SC SCH ×2 (09:14→21:32)
[2018-11-23] MEDS: Bacitracin OINT 15GM TOP SCH (16:10)
[2018-11-24] MEDS: metroNIDAZOLE 500mg/100ml NS 100 ML IVPB SCH ×3 (00:11→18:19)
[2018-11-24 05:28] LABS: BASO % 0.3 % (0.0-2.0); EOS # 0.1 K/uL (0.0-0.7); EOS % 0.7 % (0.0-4.0); HEMOGLOBIN 11.3 g/dL (12.0-18.0); LYMPH # 0.8 K/uL (1.0-4.3); LYMPH % 7.7 % (20.0-40.0); MEAN CELL VOLUME 97.2 fl (80.0-94.0); MEAN PLATELET VOLUME 9.3 fl (7.2-11.7); MONO % 9.6 % (0.0-10.0); NEUT # 8.7 K/uL (1.8-7.0); NEUT % 81.7 % (50.0-75.0); RBC 3.44 Mil/uL (4.40-5.90); RED CELL DISTRIBUTION WIDTH 16.4 % (11.5-14.5); WHITE BLOOD COUNT 10.7 K/uL (4.8-10.8)
[2018-11-24 05:46] LABS: ALB/GLOB RATIO 0.8 (1.0-2.1); ALBUMIN 2.7 g/dL (3.5-5.0); ALT/SGPT 44 U/L (21-72); AST/SGOT 32 U/L (17-59); BLOOD UREA NITROGEN 29 mg/dl (9-20); CALCIUM 8.3 mg/dL (8.4-10.2); GFR NON-AFRICAN AMERICAN > 60
[2018-11-24] MEDS: Insulin Regular 100 units/ml SC SCH ×4 (06:47→21:59)
--- NOTE | 2018-11-24 07:09 | CP.PCM.HP ---
History of Present Illness - History of Present Illness History of Present Illness: This is a 63 y/o male admitted ofr sx of hematuria right sided flank pain and dysuria. Noted to have abnormal UA and UTI. He also complained of nonspecific abd pains. He has a hx of liver cirrhosis and currently on Xifaxan and lactulose, He has been to the hospital regularly for ascites . he had passed a renal stone yesterday and was started on Cipro by his PMD. Past Medical Hx liver cirrhosis DM 2 Ascites anemia Present on Admission - Present on Admission Any Indicators Present on Admission: No History of DVT/PE: No History of Uncontrolled Diabetes: Yes Urinary Catheter: No Decubitus Ulcer Present: No Review of Systems - Gastrointestinal Gastrointestinal: Abdominal Pain, Constipation, Heartburn Past Patient History - Infectious Disease Hx of Infectious Diseases: None - Past Medical History & Family History Past Medical History?: Yes - Past Social History Smoking Status: Never Smoked - CARDIAC Hx Cardiac Disorders: Yes Hx Hypertension: Yes - PULMONARY Hx Respiratory Disorders: Yes Hx Asthma: Yes - NEUROLOGICAL Hx Neurological Disorder: No - HEENT Hx HEENT Problems: No - RENAL Hx Chronic Kidney Disease: Yes Hx Kidney Stones: Yes - ENDOCRINE/METABOLIC Hx Endocrine Disorders: Yes Hx Diabetes Mellitus Type 2: Yes - HEMATOLOGICAL/ONCOLOGICAL Hx Blood Disorders: No Hx AIDS: No Hx Human Immunodeficiency Virus (HIV): No - INTEGUMENTARY Hx Dermatological Problems: No - MUSCULOSKELETAL/RHEUMATOLOGICAL Hx Musculoskeletal Disorders: No Hx Falls: No - GASTROINTESTINAL Hx Gastrointestinal Disorders: Yes Hx Gall Bladder Disease: Yes - GENITOURINARY/GYNECOLOGICAL Hx Genitourinary Disorders: No - PSYCHIATRIC Hx Psychophysiologic Disorder: No Hx Substance Use: No - SURGICAL HISTORY Hx Surgeries: Yes Hx Cholecystectomy: Yes - ANESTHESIA Hx Anesthesia: Yes Hx Anesthesia Reactions: No Meds Allergies/Adverse Reactions: Allergies Allergy/AdvReac Type Severity Reaction Status Date / Time No Known Allergies Allergy Verified 11/21/18 19:00 Physical Exam - Head Exam Head Exam: NORMAL INSPECTION - Eye Exam Eye Exam: Normal appearance - ENT Exam ENT Exam: Mucous Membranes Moist - Respiratory Exam Respiratory Exam: Clear to Auscultation Bilateral - Cardiovascular Exam Cardiovascular Exam: REGULAR RHYTHM - GI/Abdominal Exam GI & Abdominal Exam: Distended, Normal Bowel Sounds - Neurological Exam Neurological exam: CN II-XII Intact Results - Vital Signs Recent Vital Signs: Last Vital Signs Temp 98.5 F 11/24/18 05:00 Pulse 91 H 11/24/18 05:00 Resp 18 11/24/18 05:00 BP 98/63 L 11/24/18 05:00 Pulse Ox 95 11/24/18 05:00 - Labs Result Diagrams: 11/24/18 04:25 11/24/18 04:25 Labs: Laboratory Results - last 24 hr 11/23/18 11/23/18 11/23/18 09:11 11:26 16:11 WBC RBC Hgb Hct MCV MCH MCHC RDW Plt Count MPV Neut % (Auto) Lymph % (Auto) Saunders % (Auto) Eos % (Auto) Baso % (Auto) Neut # (Auto) Lymph # (Auto) Saunders # (Auto) Eos # (Auto) Baso # (Auto) Sodium Potassium Chloride Carbon Dioxide Anion Gap BUN Creatinine Est GFR ( Amer) Est GFR (Non-Af Amer) POC Glucose (mg/dL) 183 H 192 H 131 H Random Glucose Calcium Total Bilirubin AST ALT Alkaline Phosphatase Ammonia Total Protein Albumin Globulin Albumin/Globulin Ratio 11/23/18 11/24/18 11/24/18 21:31 04:25 04:25 WBC 10.7 RBC 3.44 L Hgb 11.3 L Hct 33.4 L MCV 97.2 H D MCH 33.0 H MCHC 34.0 RDW 16.4 H Plt Count 126 L MPV 9.3 Neut % (Auto) 81.7 H Lymph % (Auto) 7.7 L Saunders % (Auto) 9.6 Eos % (Auto) 0.7 Baso % (Auto) 0.3 Neut # (Auto) 8.7 H Lymph # (Auto) 0.8 L Saunders # (Auto) 1.0 H Eos # (Auto) 0.1 Baso # (Auto) 0.0 Sodium 130 L Potassium 4.0 Chloride 101 Carbon Dioxide 22 Anion Gap 11 BUN 29 H Creatinine 1.2 Est GFR ( Amer) > 60 Est GFR (Non-Af Amer) > 60 POC Glucose (mg/dL) 160 H Random Glucose 47 L Calcium 8.3 L Total Bilirubin 0.6 AST 32 ALT 44 Alkaline Phosphatase 250 H Ammonia Total Protein 6.3 Albumin 2.7 L Globulin 3.6 Albumin/Globulin Ratio 0.8 L 11/24/18 11/24/18 11/24/18 04:25 04:49 06:09 WBC RBC Hgb Hct MCV MCH MCHC RDW Plt Count MPV Neut % (Auto) Lymph % (Auto) Saunders % (Auto) Eos % (Auto) Baso % (Auto) Neut # (Auto) Lymph # (Auto) Saunders # (Auto) Eos # (Auto) Baso # (Auto) Sodium Potassium Chloride Carbon Dioxide Anion Gap BUN Creatinine Est GFR ( Amer) Est GFR (Non-Af Amer) POC Glucose (mg/dL) 44 L 149 H Random Glucose Calcium Total Bilirubin AST ALT Alkaline Phosphatase Ammonia 9 L Total Protein Albumin Globulin Albumin/Globulin Ratio Assessment & Plan (1) UTI (urinary tract infection) Status: Acute (2) Ascites Status: Acute (3) Colitis Status: Acute (4) Constipation Status: Acute (5) Anemia Status: Acute (6) Liver cirrhosis Status: Acute - Assessment and Plan (Free Text) Plan: urine and blood C and s stool softener Iv hydration start Cipro flagyl
--- NOTE | 2018-11-24 07:12 | CP.PCM.PN ---
Subjective - Date & Time of Evaluation Date of Evaluation: 11/23/18 Time of Evaluation: 14:20 - Subjective Subjective: Patient still has elevated WBC but less pain Very comfortable in bed On Cipro and flagyl Noted constipation on Ct scan. Noted positive urine and blood C and S with G neg bacteria Objective - Vital Signs/Intake and Output Vital Signs (last 24 hours): Temp Pulse Resp BP Pulse Ox 98.5 F 91 H 18 98/63 L 95 11/24/18 05:00 11/24/18 05:00 11/24/18 05:00 11/24/18 05:00 11/24/18 05:00 - Medications Medications: Current Medications Acetaminophen (Tylenol 325mg Tab) 650 mg PO Q4 PRN PRN Reason: Fever >100.4 F Last Admin: 11/24/18 00:10 Dose: 650 mg Bacitracin (Bacitracin Oint) 1 applic TOP BID [facility] Last Admin: 11/23/18 16:10 Dose: 1 applic Ferrous Sulfate (Feosol) 325 mg PO Q8 [facility] Last Admin: 11/24/18 00:10 Dose: 325 mg Furosemide (Lasix) 40 mg PO BID [facility] Last Admin: 11/23/18 18:18 Dose: Not Given Home Med (S-Adenosylmethionine Sul Tosyl [Dandy-E]) 400 mg PO DAILY [facility] Home Med (Ursodiol [Zohra]) 250 mg PO Q6 [facility] Hydroxyzine HCl (Atarax) 25 mg PO Q6 PRN PRN Reason: Itching / Pruritus Ciprofloxacin (Cipro 400mg/200ml Dsw) 400 mg in 200 mls @ 200 mls/hr IVPB Q12 [facility]; Protocol Last Admin: 11/23/18 21:23 Dose: 200 mls/hr Metronidazole (Flagyl 500mg/100ml Ns) 100 mls @ 100 mls/hr IVPB Q8 [facility]; Protocol Last Admin: 11/24/18 00:11 Dose: 100 mls/hr Insulin Detemir (Levemir) 10 units SC BID@0900,2100 [facility] Last Admin: 11/23/18 21:32 Dose: 10 units Insulin Human Regular (Humulin R) 0 units SC ACHS [facility]; Protocol Last Admin: 11/24/18 06:47 Dose: Not Given Lactobacillus Acidophilus (Bacid Acidophilus) 1 cap PO BID [facility] Last Admin: 11/23/18 16:09 Dose: 1 cap Lactulose (Enulose) 20 gm PO BID [facility] Last Admin: 11/23/18 16:10 Dose: Not Given Metoclopramide HCl (Reglan) 5 mg PO Q12 [facility] Last Admin: 11/23/18 21:21 Dose: 5 mg Multivitamins/Minerals (Therapeutic-M Tab) 1 tab PO DAILY [facility] Last Admin: 11/23/18 09:04 Dose: 1 tab Rifaximin (Xifaxan) 550 mg PO Q12 [facility]; Protocol Last Admin: 11/23/18 21:37 Dose: 550 mg Spironolactone (Aldactone) 50 mg PO BID [facility] Last Admin: 11/23/18 16:16 Dose: 50 mg Tamsulosin HCl (Flomax) 0.4 mg PO QPM [facility] Last Admin: 11/23/18 18:19 Dose: 0.4 mg Vitamin B Complex/Vit C/Folic Acid (Nephro-Felicia) 1 tab PO DAILY [facility] Last Admin: 11/23/18 09:05 Dose: 1 tab Zolpidem Tartrate (Ambien) 5 mg PO HS [facility] Last Admin: 11/23/18 22:37 Dose: Not Given - Labs Labs: 11/24/18 04:25 11/24/18 04:25 PT 16.8 Seconds (9.8-13.1) H 11/21/18 20:26 INR 1.5 11/21/18 20:26 APTT 36.0 Seconds (25.6-37.1) 11/21/18 20:26 - Head Exam Head Exam: NORMAL INSPECTION - Eye Exam Eye Exam: Normal appearance - ENT Exam ENT Exam: Mucous Membranes Moist - Respiratory Exam Respiratory Exam: Clear to Ausculation Bilateral - Cardiovascular Exam Cardiovascular Exam: REGULAR RHYTHM - GI/Abdominal Exam GI & Abdominal Exam: Soft, Normal Bowel Sounds - Rectal Exam Rectal Exam: NORMAL INSPECTION - Neurological Exam Neurological Exam: Awake, Oriented x3 Assessment and Plan (1) UTI (urinary tract infection) Status: Acute (2) Ascites Status: Acute (3) Colitis Status: Acute (4) Constipation Status: Acute (5) Dehydration Status: Acute (6) Anemia Status: Acute (7) Bacteremia Status: Acute (8) Liver cirrhosis Status: Acute - Assessment and Plan (Free Text) Plan: Cont meds Cont tx Cont meds Iv antibiotics ID eval.
[2018-11-24] MEDS: Insulin Detemir 100 Units/ml Inj SC SCH ×2 (10:04→21:59)
[2018-11-24] MEDS: Multivitamin Vitamin B Complex (Nephro-Vite) Tab PO SCH (10:05)
[2018-11-24] MEDS: Multivitamin With Minerals Tab PO SCH (10:05)
[2018-11-24] MEDS: Ciprofloxacin 400mg/200ml D5W 400 MG/200 ML BAG IVPB SCH (10:10)
[2018-11-24] MEDS: Lactobacillus Acidophilus 500 MU Cap PO SCH ×2 (10:11→18:17)
[2018-11-24] MEDS: Bacitracin OINT 15GM TOP SCH ×2 (10:11→18:18)
--- NOTE | 2018-11-24 11:35 | CP.PCM.CON ---
History of Present Illness - History of Present Illness History of Present Illness: 63 year old male with pmHx of DM type II, HTN, liver cirrhosis, and renal colic, presents to ED with his godson for an evaluation of right-sided flank pain associated with dysuria, bloody urine, and chills for 3 days. Patient was prescribed ciprofloxacin by his PCP after passing a kidney stone last night. Despite clinical improvement with hydration and IV Cipro since admission, his blood cultures grew ESBL E Coli resistant to Cipro Infectious diseases consulted for this and was strarted on Merrem - Medical History PMH: Asthma, Diabetes, Gall Bladder Disease, HTN, Kidney Stones cirrhosis renal colic Denies: HIV, Chronic Kidney Disease Review of Systems - Review of Systems All systems: reviewed and no additional remarkable complaints except - Constitutional Constitutional: As Per HPI, Chills, Fever, Malaise - EENT Eyes: absent: As Per HPI, Blind Spots, Blurred Vision, Change in Vision, Decreased Night Vision, Diplopia, Discharge, Dry Eye, Exophthalmos, Floaters, Irritation, Itchy Eyes, Loss of Peripheral Vision, Pain, Photophobia, Requires Corrective Lenses, Sees Flashes, Spots in Vision, Tunnel Vision, Other Visual Disturbances, Loss of Vision, Other Ears: absent: As Per HPI, Decreased Hearing, Ear Discharge, Ear Pain, Tinnitus, Abnormal Hearing, Disequilibrium, Dizziness, Other Nose/Mouth/Throat: absent: As Per HPI, Epistaxis, Nasal Congestion, Nasal Discharge, Nasal Obstruction, Nasal Trauma, Nose Pain, Post Nasal Drip, Sinus Pain, Sinus Pressure, Bleeding Gums, Change in Voice, Dental Pain, Dry Mouth, Dysphagia, Halitosis, Hoarsness, Lip Swelling, Mouth Lesions, Mouth Pain, Odynophagia, Sore Throat, Throat Swelling, Tongue Swelling, Facial Pain, Neck Pain, Neck Mass, Other - Cardiovascular Cardiovascular: absent: As Per HPI, Acrocyanosis, Chest Pain, Chest Pain at Rest, Chest Pain with Activity, Claudication, Diaphoresis, Dyspnea, Dyspnea on Exertion, Edema, Irregular Heart Rhythm, Pain Radiating to Arm/Neck/Jaw, Leg Edema, Leg Ulcers, Lightheadedness, Orthopnea, Palpitations, Paroxysmal Nocturnal Dyspnea, Pedal Edema, Radiating Pain, Rapid Heart Rate, Slow Heart Rate, Syncope, Other - Respiratory Respiratory: absent: As Per HPI, Cough, Dyspnea, Hemoptysis, Dyspnea on Ex ertion, Wheezing, Snoring, Stridor, Pain on Inspiration, Chest Congestion, Excessive Mucous Production, Change in Mucous Color, Pain with Coughing, Other - Gastrointestinal Gastrointestinal: As Per HPI - Genitourinary Genitourinary: As Per HPI - Musculoskeletal Musculoskeletal: absent: As Per HPI, Abnormal Gait, Arthralgias, Atrophy, Back Pain, Deformity, Joint Swelling, Limited Range of Motion, Loss of Height, Muscle Cramps, Muscle Weakness, Myalgias, Neck Pain, Numbness, Radiating Pain into Limb, Stiffness, Tingling, Other - Integumentary Integumentary: absent: As Per HPI, Acne, Alopecia, Bleeding Lesions, Change in Hair, Change in Nails, Change in Pigmentation, Changing Lesions, Dry Skin, Erythema, Furuncle, Hirsutism, Lesions, New Lesions, Non-Healing Lesions, Photosensitivity, Pruritus, Rash, Skin Pain, Skin Ulcer, Sores, Striae, Swelling, Unusual Bruising, Wounds, Jaundice, Other - Neurological Neurological: absent: As Per HPI, Abnormal Gait, Abnormal Hearing, Abnormal Movements, Abnormal Speech, Behavioral Changes, Burning Sensations, Confusion, Convulsions, Disequilibrium, Dizziness, Numbness, Focal Weakness, Frequent Falls, Headaches, Lack of Coordination, Loss of Vision, Memory Loss, Paresthesias, Radicular Pain, Restless Legs, Sensory Deficit, Syncope, Tingling, Tremor, Vertigo, Weakness, Other Visual Disturbances, Other - Psychiatric Psychiatric: absent: As Per HPI, Abnormal Sleep Pattern, Anhedonia, Anxiety, Auditory Hallucinations, Behavioral Changes, Change in Appetite, Change in Libido, Confusion, Depression, Difficulty Concentrating, Hallucinations, Homicidal Ideation, Hopelessness, Irritability, Memory Loss, Mood Swings, Panic Attacks, Paranoia, Suicidal Ideation, Visual Hallucinations, Tactile Hallucinations, Other - Endocrine Endocrine: absent: As Per HPI, Change in Body Appearance, Change in Libido, Cold Intolorance, Deepening of Voice, Excessive Sweating, Fatigue, Flushing, Heat Intolorance, Increase in Ring/Shoe/Hat Size, Palpitations, Polydipsia, Polyphagia, Polyuria, Other - Hematologic/Lymphatic Hematologic: absent: As Per HPI, Easy Bleeding, Easy Bruising, Lymphadenopathy, Other Past Patient History - Infectious Disease Hx of Infectious Diseases: None - Past Medical History & Family History Past Medical History?: Yes - Past Social History Smoking Status: Never Smoked - CARDIAC Hx Cardiac Disorders: Yes Hx Hypertension: Yes - PULMONARY Hx Respiratory Disorders: Yes Hx Asthma: Yes - NEUROLOGICAL Hx Neurological Disorder: No - HEENT Hx HEENT Problems: No - RENAL Hx Chronic Kidney Disease: Yes Hx Kidney Stones: Yes - ENDOCRINE/METABOLIC Hx Endocrine Disorders: Yes Hx Diabetes Mellitus Type 2: Yes - HEMATOLOGICAL/ONCOLOGICAL Hx Blood Disorders: No Hx AIDS: No Hx Human Immunodeficiency Virus (HIV): No - INTEGUMENTARY Hx Dermatological Problems: No - MUSCULOSKELETAL/RHEUMATOLOGICAL Hx Musculoskeletal Disorders: No Hx Falls: No - GASTROINTESTINAL Hx Gastrointestinal Disorders: Yes Hx Gall Bladder Disease: Yes - GENITOURINARY/GYNECOLOGICAL Hx Genitourinary Disorders: No - PSYCHIATRIC Hx Psychophysiologic Disorder: No Hx Substance Use: No - SURGICAL HISTORY Hx Surgeries: Yes Hx Cholecystectomy: Yes - ANESTHESIA Hx Anesthesia: Yes Hx Anesthesia Reactions: No Meds Allergies/Adverse Reactions: Allergies Allergy/AdvReac Type Severity Reaction Status Date / Time No Known Allergies Allergy Verified 11/21/18 19:00 - Medications Medications: Current Medications Acetaminophen (Tylenol 325mg Tab) 650 mg PO Q4 PRN PRN Reason: Fever >100.4 F Last Admin: 11/24/18 00:10 Dose: 650 mg Bacitracin (Bacitracin Oint) 1 applic TOP BID [facility] Last Admin: 11/24/18 10:11 Dose: 1 applic Ferrous Sulfate (Feosol) 325 mg PO Q8 [facility] Last Admin: 11/24/18 10:03 Dose: 325 mg Furosemide (Lasix) 40 mg PO BID [facility] Last Admin: 11/24/18 10:04 Dose: Not Given Home Med (S-Adenosylmethionine Sul Tosyl [Dandy-E]) 400 mg PO DAILY [facility] Home Med (Ursodiol [Zohra]) 250 mg PO Q6 [facility] Hydroxyzine HCl (Atarax) 25 mg PO Q6 PRN PRN Reason: Itching / Pruritus Metronidazole (Flagyl 500mg/100ml Ns) 100 mls @ 100 mls/hr IVPB Q8 [facility]; Protocol Last Admin: 11/24/18 10:09 Dose: 100 mls/hr Meropenem 1 gm/ Sodium (Chloride) 100 mls @ 100 mls/hr IVPB Q8 [facility]; Protocol Insulin Detemir (Levemir) 10 units SC BID@0900,2100 [facility] Last Admin: 11/24/18 10:04 Dose: Not Given Insulin Human Regular (Humulin R) 0 units SC [facility]; Protocol Last Admin: 11/24/18 06:47 Dose: Not Given Lactobacillus Acidophilus (Bacid Acidophilus) 1 cap PO BID [facility] Last Admin: 11/24/18 10:11 Dose: 1 cap Lactulose (Enulose) 20 gm PO BID [facility] Last Admin: 11/24/18 10:03 Dose: 20 gm Metoclopramide HCl (Reglan) 5 mg PO Q12 [facility] Last Admin: 11/24/18 10:05 Dose: 5 mg Multivitamins/Minerals (Therapeutic-M Tab) 1 tab PO DAILY [facility] Last Admin: 11/24/18 10:05 Dose: 1 tab Rifaximin (Xifaxan) 550 mg PO Q12 [facility]; Protocol Last Admin: 11/24/18 10:06 Dose: 550 mg Spironolactone (Aldactone) 50 mg PO BID [facility] Last Admin: 11/24/18 10:02 Dose: 50 mg Tamsulosin HCl (Flomax) 0.4 mg PO QPM [facility] Last Admin: 11/23/18 18:19 Dose: 0.4 mg Vitamin B Complex/Vit C/Folic Acid (Nephro-Felicia) 1 tab PO DAILY [facility] Last Admin: 11/24/18 10:05 Dose: 1 tab Zolpidem Tartrate (Ambien) 5 mg PO HS [facility] Last Admin: 11/23/18 22:37 Dose: Not Given Physical Exam - Constitutional Appears: Non-toxic, No Acute Distress, Cachectic, Chronically Ill - Head Exam Head Exam: ATRAUMATIC, NORMAL INSPECTION, NORMOCEPHALIC - Eye Exam Eye Exam: PERRL. absent: Scleral icterus - ENT Exam ENT Exam: Mucous Membranes Dry, Normal External Ear Exam, Normal Oropharynx - Neck Exam Neck exam: Negative for: Lymphadenopathy, Thyromegaly - Respiratory Exam Respiratory Exam: Decreased Breath Sounds, Clear to Auscultation Bilateral, Prolonged Expiratory Phase - Cardiovascular Exam Cardiovascular Exam: REGULAR RHYTHM, +S1, +S2 - GI/Abdominal Exam GI & Abdominal Exam: Diminished Bowel Sounds, Distended, Hypoactive Bowel Sounds, Organomegaly. absent: Guarding, Rebound, Rigid, Tenderness - Rectal Exam Rectal Exam: Deferred - Exam Exam: NORMAL INSPECTION - Extremities Exam Extremities exam: Positive for: pedal edema, pedal pulses present. Negative for: calf tenderness, tenderness - Back Exam Back exam: absent: CVA tenderness (L), CVA tenderness (R), paraspinal tenderness - Neurological Exam Neurological exam: Alert, CN II-XII Intact, Oriented x3, Reflexes Normal - Psychiatric Exam Psychiatric exam: Depressed - Skin Skin Exam: Dry Results - Vital Signs Recent Vital Signs: Last Vital Signs Temp 98.2 F 11/24/18 07:51 Pulse 77 11/24/18 07:51 Resp 18 11/24/18 07:51 BP 97/61 L 11/24/18 07:51 Pulse Ox 98 11/24/18 07:51 - Labs Result Diagrams: 11/24/18 04:25 11/24/18 04:25 Labs: Laboratory Results - last 24 hr 11/23/18 11/23/18 11/24/18 16:11 21:31 04:25 WBC 10.7 RBC 3.44 L Hgb 11.3 L Hct 33.4 L MCV 97.2 H D MCH 33.0 H MCHC 34.0 RDW 16.4 H Plt Count 126 L MPV 9.3 Neut % (Auto) 81.7 H Lymph % (Auto) 7.7 L [place] % (Auto) 9.6 Eos % (Auto) 0.7 Baso % (Auto) 0.3 Neut # (Auto) 8.7 H Lymph # (Auto) 0.8 L [place] # (Auto) 1.0 H Eos # (Auto) 0.1 Baso # (Auto) 0.0 Sodium Potassium Chloride Carbon Dioxide Anion Gap BUN Creatinine Est GFR ( Amer) Est GFR (Non-Af Amer) POC Glucose (mg/dL) 131 H 160 H Random Glucose Calcium Total Bilirubin AST ALT Alkaline Phosphatase Ammonia Total Protein Albumin Globulin Albumin/Globulin Ratio 11/24/18 11/24/18 11/24/18 04:25 04:25 04:49 WBC RBC Hgb Hct MCV MCH MCHC RDW Plt Count MPV Neut % (Auto) Lymph % (Auto) [place] % (Auto) Eos % (Auto) Baso % (Auto) Neut # (Auto) Lymph # (Auto) [place] # (Auto) Eos # (Auto) Baso # (Auto) Sodium 130 L Potassium 4.0 Chloride 101 Carbon Dioxide 22 Anion Gap 11 BUN 29 H Creatinine 1.2 Est GFR ( Amer) > 60 Est GFR (Non-Af Amer) > 60 POC Glucose (mg/dL) 44 L Random Glucose 47 L Calcium 8.3 L Total Bilirubin 0.6 AST 32 ALT 44 Alkaline Phosphatase 250 H Ammonia 9 L Total Protein 6.3 Albumin 2.7 L Globulin 3.6 Albumin/Globulin Ratio 0.8 L 11/24/18 11/24/18 06:09 10:56 WBC RBC Hgb Hct MCV MCH MCHC RDW Plt Count MPV Neut % (Auto) Lymph % (Auto) [place] % (Auto) Eos % (Auto) Baso % (Auto) Neut # (Auto) Lymph # (Auto) [place] # (Auto) Eos # (Auto) Baso # (Auto) Sodium Potassium Chloride Carbon Dioxide Anion Gap BUN Creatinine Est GFR ( Amer) Est GFR (Non-Af Amer) POC Glucose (mg/dL) 149 H 129 H Random Glucose Calcium Total Bilirubin AST ALT Alkaline Phosphatase Ammonia Total Protein Albumin Globulin Albumin/Globulin Ratio Assessment & Plan (1) Ascites Status: Acute (2) Severe sepsis Status: Acute (3) UTI (urinary tract infection) Status: Acute (4) Bacteremia Status: Acute (5) Liver cirrhosis Status: Acute (6) Infection due to ESBL-producing Escherichia coli Status: Acute - Assessment and Plan (Free Text) Assessment: 63 yo diabetic male with cirrhosis is admitted with severe sepsis / bacteremia UTI/sepsis secondary to ESBL + E Coli sens to Merrem Has nephrolithiasis and will need eval for this will likely need 14 days IV antibiotics since no oral agents available to which the bactreria is sensitive
[2018-11-24] MEDS: Meropenem 1 GM in Sodium Chloride 0.9% 100 ML IVPB SCH ×2 (14:48→18:22)
[2018-11-25] MEDS: metroNIDAZOLE 500mg/100ml NS 100 ML IVPB SCH ×3 (00:01→16:40)
[2018-11-25] MEDS: Insulin Regular 100 units/ml SC SCH ×4 (06:34→22:07)
[2018-11-25] MEDS: Insulin Detemir 100 Units/ml Inj SC SCH ×2 (09:16→22:54)
[2018-11-25] MEDS: Multivitamin With Minerals Tab PO SCH (09:17)
[2018-11-25] MEDS: Bacitracin OINT 15GM TOP SCH ×2 (09:20→16:35)
[2018-11-25] MEDS: Meropenem 1 GM in Sodium Chloride 0.9% 100 ML IVPB SCH ×3 (09:21→16:40)
[2018-11-25] MEDS: Lactobacillus Acidophilus 500 MU Cap PO SCH ×2 (09:26→16:39)
[2018-11-25] MEDS: Multivitamin Vitamin B Complex (Nephro-Vite) Tab PO SCH (11:15)
[2018-11-25] MEDS: Simethicone 80 mg Chewtab PO PRN (16:51)
[2018-11-26] MEDS: metroNIDAZOLE 500mg/100ml NS 100 ML IVPB SCH ×3 (00:10→17:15)
[2018-11-26] MEDS: Meropenem 1 GM in Sodium Chloride 0.9% 100 ML IVPB SCH ×3 (00:10→17:14)
--- NOTE | 2018-11-26 07:33 | CP.PCM.PN ---
Subjective - Date & Time of Evaluation Date of Evaluation: 11/24/18 Time of Evaluation: 11:00 - Subjective Subjective: Patient desires to go home but noted ESBL in urine resistant to Cipro. Afebrile Had bm with lactulose Objective - Vital Signs/Intake and Output Vital Signs (last 24 hours): Temp Pulse Resp BP Pulse Ox 98.2 F 76 16 108/68 96 11/26/18 05:00 11/26/18 05:00 11/26/18 05:00 11/26/18 05:00 11/26/18 05:00 - Medications Medications: Current Medications Acetaminophen (Tylenol 325mg Tab) 650 mg PO Q4 PRN PRN Reason: Fever >100.4 F Last Admin: 11/24/18 14:49 Dose: 650 mg Bacitracin (Bacitracin Oint) 1 applic TOP BID [facility] Last Admin: 11/25/18 16:35 Dose: 1 applic Ferrous Sulfate (Feosol) 325 mg PO Q8 [facility] Last Admin: 11/26/18 00:11 Dose: 325 mg Furosemide (Lasix) 40 mg PO BID [facility] Last Admin: 11/25/18 16:36 Dose: Not Given Hydroxyzine HCl (Atarax) 25 mg PO Q6 PRN PRN Reason: Itching / Pruritus Last Admin: 11/24/18 22:00 Dose: 25 mg Metronidazole (Flagyl 500mg/100ml Ns) 100 mls @ 100 mls/hr IVPB Q8 [facility]; Protocol Last Admin: 11/26/18 00:10 Dose: 100 mls/hr Meropenem 1 gm/ Sodium (Chloride) 100 mls @ 100 mls/hr IVPB Q8 [facility]; Protocol Last Admin: 11/26/18 00:10 Dose: 100 mls/hr Insulin Detemir (Levemir) 10 units SC BID@0900,2100 [facility] Last Admin: 11/25/18 22:54 Dose: 10 units Insulin Human Regular (Humulin R) 0 units SC ACHS [facility]; Protocol Last Admin: 11/25/18 22:07 Dose: Not Given Lactobacillus Acidophilus (Bacid Acidophilus) 1 cap PO BID [facility] Last Admin: 11/25/18 16:39 Dose: 1 cap Lactulose (Enulose) 20 gm PO BID [facility] Last Admin: 11/25/18 16:35 Dose: Not Given Metoclopramide HCl (Reglan) 5 mg PO Q12 [facility] Last Admin: 11/25/18 22:54 Dose: 5 mg Multivitamins/Minerals (Therapeutic-M Tab) 1 tab PO DAILY [facility] Last Admin: 11/25/18 09:17 Dose: 1 tab Simethicone (Mylicon Chew Tab) 80 mg PO Q8 PRN PRN Reason: Flatulence Last Admin: 11/25/18 16:51 Dose: 80 mg Spironolactone (Aldactone) 50 mg PO BID [facility] Last Admin: 11/25/18 16:34 Dose: 50 mg Tamsulosin HCl (Flomax) 0.4 mg PO QPM [facility] Last Admin: 11/25/18 17:10 Dose: 0.4 mg Vitamin B Complex/Vit C/Folic Acid (Nephro-Felicia) 1 tab PO DAILY [facility] Last Admin: 11/25/18 11:15 Dose: 1 tab - Labs Labs: 11/24/18 04:25 11/24/18 04:25 PT 16.8 Seconds (9.8-13.1) H 11/21/18 20:26 INR 1.5 11/21/18 20:26 APTT 36.0 Seconds (25.6-37.1) 11/21/18 20:26 - Head Exam Head Exam: NORMAL INSPECTION - Eye Exam Eye Exam: Normal appearance - ENT Exam ENT Exam: Mucous Membranes Moist - Respiratory Exam Respiratory Exam: Clear to Ausculation Bilateral - Cardiovascular Exam Cardiovascular Exam: REGULAR RHYTHM - Neurological Exam Neurological Exam: Awake, Oriented x3 Assessment and Plan (1) UTI (urinary tract infection) Status: Acute (2) Ascites Status: Acute (3) Colitis Status: Acute (4) Constipation Status: Acute (5) Dehydration Status: Acute (6) Anemia Status: Acute (7) Bacteremia Status: Acute (8) Liver cirrhosis Status: Acute - Assessment and Plan (Free Text) Plan: Cont meds Discussed with Dr omer will Dc Cipro and start with Edith will hold discharge plans. May need PICC
--- NOTE | 2018-11-26 07:36 | CP.PCM.PN ---
Subjective - Date & Time of Evaluation Date of Evaluation: 11/25/18 Time of Evaluation: 16:15 - Subjective Subjective: Patient remains well Has no chest pain or SOB [place] Objective - Vital Signs/Intake and Output Vital Signs (last 24 hours): Temp Pulse Resp BP Pulse Ox 98.2 F 76 16 108/68 96 11/26/18 05:00 11/26/18 05:00 11/26/18 05:00 11/26/18 05:00 11/26/18 05:00 - Medications Medications: Current Medications Acetaminophen (Tylenol 325mg Tab) 650 mg PO Q4 PRN PRN Reason: Fever >100.4 F Last Admin: 11/24/18 14:49 Dose: 650 mg Bacitracin (Bacitracin Oint) 1 applic TOP BID [facility] Last Admin: 11/25/18 16:35 Dose: 1 applic Ferrous Sulfate (Feosol) 325 mg PO Q8 [facility] Last Admin: 11/26/18 00:11 Dose: 325 mg Furosemide (Lasix) 40 mg PO BID [facility] Last Admin: 11/25/18 16:36 Dose: Not Given Hydroxyzine HCl (Atarax) 25 mg PO Q6 PRN PRN Reason: Itching / Pruritus Last Admin: 11/24/18 22:00 Dose: 25 mg Metronidazole (Flagyl 500mg/100ml Ns) 100 mls @ 100 mls/hr IVPB Q8 [facility]; Protocol Last Admin: 11/26/18 00:10 Dose: 100 mls/hr Meropenem 1 gm/ Sodium (Chloride) 100 mls @ 100 mls/hr IVPB Q8 [facility]; Protocol Last Admin: 11/26/18 00:10 Dose: 100 mls/hr Insulin Detemir (Levemir) 10 units SC BID@0900,2100 [facility] Last Admin: 11/25/18 22:54 Dose: 10 units Insulin Human Regular (Humulin R) 0 units SC ACHS [facility]; Protocol Last Admin: 11/25/18 22:07 Dose: Not Given Lactobacillus Acidophilus (Bacid Acidophilus) 1 cap PO BID [facility] Last Admin: 11/25/18 16:39 Dose: 1 cap Lactulose (Enulose) 20 gm PO BID [facility] Last Admin: 11/25/18 16:35 Dose: Not Given Metoclopramide HCl (Reglan) 5 mg PO Q12 [facility] Last Admin: 11/25/18 22:54 Dose: 5 mg Multivitamins/Minerals (Therapeutic-M Tab) 1 tab PO DAILY [facility] Last Admin: 11/25/18 09:17 Dose: 1 tab Simethicone (Mylicon Chew Tab) 80 mg PO Q8 PRN PRN Reason: Flatulence Last Admin: 11/25/18 16:51 Dose: 80 mg Spironolactone (Aldactone) 50 mg PO BID [facility] Last Admin: 11/25/18 16:34 Dose: 50 mg Tamsulosin HCl (Flomax) 0.4 mg PO QPM [facility] Last Admin: 11/25/18 17:10 Dose: 0.4 mg Vitamin B Complex/Vit C/Folic Acid (Nephro-Felicia) 1 tab PO DAILY [facility] Last Admin: 11/25/18 11:15 Dose: 1 tab - Labs Labs: 11/24/18 04:25 11/24/18 04:25 PT 16.8 Seconds (9.8-13.1) H 11/21/18 20:26 INR 1.5 11/21/18 20:26 APTT 36.0 Seconds (25.6-37.1) 11/21/18 20:26 - Head Exam Head Exam: NORMAL INSPECTION - Eye Exam Eye Exam: Normal appearance - ENT Exam ENT Exam: Mucous Membranes Moist - Respiratory Exam Respiratory Exam: Clear to Ausculation Bilateral - Cardiovascular Exam Cardiovascular Exam: REGULAR RHYTHM - GI/Abdominal Exam GI & Abdominal Exam: Normal Bowel Sounds - Neurological Exam Neurological Exam: CN II-XII Intact, Oriented x3 - Psychiatric Exam Psychiatric exam: Normal Mood Assessment and Plan (1) UTI (urinary tract infection) Status: Acute (2) Ascites Status: Acute (3) Colitis Status: Acute (4) Constipation Status: Acute (5) Dehydration Status: Acute (6) Anemia Status: Acute (7) Bacteremia Status: Acute (8) Liver cirrhosis Status: Acute - Assessment and Plan (Free Text) Plan: Cont meds Cont tx PT eval will order for PICC depending on duration of IV antibiotics.
[2018-11-26] MEDS: Insulin Regular 100 units/ml SC SCH ×3 (08:15→23:42)
[2018-11-26] MEDS: Multivitamin Vitamin B Complex (Nephro-Vite) Tab PO SCH (09:35)
[2018-11-26] MEDS: Multivitamin With Minerals Tab PO SCH (09:35)
[2018-11-26] MEDS: Lactobacillus Acidophilus 500 MU Cap PO SCH ×2 (09:36→17:15)
[2018-11-26] MEDS: Bacitracin OINT 15GM TOP SCH ×2 (09:41→17:15)
--- NOTE | 2018-11-26 13:33 | CP.PCM.PN ---
Subjective - Date & Time of Evaluation Date of Evaluation: 11/26/18 Time of Evaluation: 09:00 - Subjective Subjective: awake alert afeb in NAD Objective - Vital Signs/Intake and Output Vital Signs (last 24 hours): Temp Pulse Resp BP Pulse Ox 98.2 F 69 20 98/61 L 98 11/26/18 08:10 11/26/18 08:10 11/26/18 08:10 11/26/18 09:38 11/26/18 08:10 - Medications Medications: Current Medications Acetaminophen (Tylenol 325mg Tab) 650 mg PO Q4 PRN PRN Reason: Fever >100.4 F Last Admin: 11/24/18 14:49 Dose: 650 mg Bacitracin (Bacitracin Oint) 1 applic TOP BID [facility] Last Admin: 11/26/18 09:41 Dose: 1 applic Ferrous Sulfate (Feosol) 325 mg PO Q8 [facility] Last Admin: 11/26/18 00:11 Dose: 325 mg Furosemide (Lasix) 40 mg PO BID [facility] Last Admin: 11/26/18 09:38 Dose: Not Given Hydroxyzine HCl (Atarax) 25 mg PO Q6 PRN PRN Reason: Itching / Pruritus Last Admin: 11/24/18 22:00 Dose: 25 mg Metronidazole (Flagyl 500mg/100ml Ns) 100 mls @ 100 mls/hr IVPB Q8 [facility]; Protocol Last Admin: 11/26/18 09:41 Dose: 100 mls/hr Meropenem 1 gm/ Sodium (Chloride) 100 mls @ 100 mls/hr IVPB Q8 [facility]; Protocol Last Admin: 11/26/18 09:41 Dose: 100 mls/hr Insulin Detemir (Levemir) 10 units SC BID@0900,2100 [facility] Last Admin: 11/25/18 22:54 Dose: 10 units Insulin Human Regular (Humulin R) 0 units SC ACHS [facility]; Protocol Last Admin: 11/26/18 08:15 Dose: Not Given Lactobacillus Acidophilus (Bacid Acidophilus) 1 cap PO BID [facility] Last Admin: 11/25/18 16:39 Dose: 1 cap Lactulose (Enulose) 20 gm PO BID [facility] Last Admin: 11/26/18 09:40 Dose: 20 gm Metoclopramide HCl (Reglan) 5 mg PO Q12 [facility] Last Admin: 11/26/18 09:36 Dose: 5 mg Multivitamins/Minerals (Therapeutic-M Tab) 1 tab PO DAILY [facility] Last Admin: 11/26/18 09:35 Dose: 1 tab Simethicone (Mylicon Chew Tab) 80 mg PO Q8 PRN PRN Reason: Flatulence Last Admin: 11/25/18 16:51 Dose: 80 mg Spironolactone (Aldactone) 50 mg PO BID [facility] Last Admin: 11/26/18 09:36 Dose: Not Given Tamsulosin HCl (Flomax) 0.4 mg PO QPM [facility] Last Admin: 11/25/18 17:10 Dose: 0.4 mg Vitamin B Complex/Vit C/Folic Acid (Nephro-Felicia) 1 tab PO DAILY [facility] Last Admin: 11/26/18 09:35 Dose: 1 tab - Labs Labs: 11/24/18 04:25 11/24/18 04:25 PT 16.8 Seconds (9.8-13.1) H 11/21/18 20:26 INR 1.5 11/21/18 20:26 APTT 36.0 Seconds (25.6-37.1) 11/21/18 20:26 - Constitutional Appears: Non-toxic, Cachectic, Chronically Ill - Head Exam Head Exam: NORMOCEPHALIC - Eye Exam Eye Exam: absent: Scleral icterus - ENT Exam ENT Exam: Mucous Membranes Dry - Neck Exam Neck Exam: absent: Lymphadenopathy - Respiratory Exam Respiratory Exam: Decreased Breath Sounds - Cardiovascular Exam Cardiovascular Exam: REGULAR RHYTHM - GI/Abdominal Exam GI & Abdominal Exam: Distended, Soft. absent: Tenderness - Rectal Exam Rectal Exam: Deferred - Exam Exam: NORMAL INSPECTION - Extremities Exam Extremities Exam: absent: Pedal Edema - Back Exam Back Exam: absent: CVA tenderness (L), CVA tenderness (R) - Neurological Exam Neurological Exam: Alert, Awake, Oriented x3 Assessment and Plan (1) Ascites Status: Acute (2) Severe sepsis Status: Acute (3) UTI (urinary tract infection) Status: Acute (4) Bacteremia Status: Acute (5) Liver cirrhosis Status: Acute (6) Infection due to ESBL-producing Escherichia coli Status: Acute - Assessment and Plan (Free Text) Assessment: 63 year old male with pmHx of DM type II, HTN, liver cirrhosis, and renal colic, presents to ED with his gómez for an evaluation of right-sided flank pain associated with dysuria, bloody urine, and chills for 3 days. cont IV merrem for 14 days
[2018-11-26] MEDS: Insulin Detemir 100 Units/ml Inj SC SCH (23:52)
[2018-11-27] MEDS: Meropenem 1 GM in Sodium Chloride 0.9% 100 ML IVPB SCH ×3 (01:30→16:25)
[2018-11-27] MEDS: metroNIDAZOLE 500mg/100ml NS 100 ML IVPB SCH ×3 (01:30→16:26)
--- NOTE | 2018-11-27 08:31 | CP.PCM.PCO ---
Assessment/Plan - Assessment and Plan (Free Text) Assessment: Patient seen and examined. Vitals stable afebrile, doing well this morning. Repeat blood cultures drawn, Cont iv rx for 14 days for esbl blood /urine. Patient understands plan.
[2018-11-27] MEDS: Bacitracin OINT 15GM TOP SCH ×2 (09:52→16:30)
[2018-11-27] MEDS: Insulin Regular 100 units/ml SC SCH ×4 (09:57→22:33)
[2018-11-27] MEDS: Insulin Detemir 100 Units/ml Inj SC SCH ×3 (09:59→22:38)
[2018-11-27] MEDS: Multivitamin Vitamin B Complex (Nephro-Vite) Tab PO SCH (10:01)
--- NOTE | 2018-11-27 12:25 | CP.PCM.PN ---
Subjective - Date & Time of Evaluation Date of Evaluation: 11/26/18 Time of Evaluation: 11:00 - Subjective Subjective: Patient is doing a lot better. Has no fever Currently on IV Merem.Tolerating medications well. Objective - Vital Signs/Intake and Output Vital Signs (last 24 hours): Temp Pulse Resp BP Pulse Ox 98.2 F 63 18 108/73 100 11/27/18 08:00 11/27/18 08:00 11/27/18 08:00 11/27/18 10:16 11/27/18 08:00 - Medications Medications: Current Medications Acetaminophen (Tylenol 325mg Tab) 650 mg PO Q4 PRN PRN Reason: Fever >100.4 F Last Admin: 11/24/18 14:49 Dose: 650 mg Bacitracin (Bacitracin Oint) 1 applic TOP BID [facility] Last Admin: 11/27/18 09:52 Dose: 1 applic Ferrous Sulfate (Feosol) 325 mg PO Q8 [facility] Last Admin: 11/27/18 09:57 Dose: 325 mg Furosemide (Lasix) 40 mg PO BID [facility] Last Admin: 11/27/18 10:16 Dose: 40 mg Hydroxyzine HCl (Atarax) 25 mg PO Q6 PRN PRN Reason: Itching / Pruritus Last Admin: 11/24/18 22:00 Dose: 25 mg Metronidazole (Flagyl 500mg/100ml Ns) 100 mls @ 100 mls/hr IVPB Q8 [facility]; Protocol Last Admin: 11/27/18 09:53 Dose: 100 mls/hr Meropenem 1 gm/ Sodium (Chloride) 100 mls @ 100 mls/hr IVPB Q8 [facility]; Protocol Last Admin: 11/27/18 10:00 Dose: 100 mls/hr Insulin Detemir (Levemir) 10 units SC BID@0900,2100 [facility] Last Admin: 11/26/18 23:52 Dose: 10 units Insulin Human Regular (Humulin R) 0 units SC ACHS [facility]; Protocol Last Admin: 11/27/18 09:57 Dose: Not Given Lactobacillus Acidophilus (Bacid Acidophilus) 1 cap PO BID [facility] Last Admin: 11/26/18 17:15 Dose: 1 cap Lactulose (Enulose) 20 gm PO BID [facility] Last Admin: 11/27/18 10:18 Dose: Not Given Metoclopramide HCl (Reglan) 5 mg PO Q12 [facility] Last Admin: 11/27/18 10:01 Dose: 5 mg Multivitamins/Minerals (Therapeutic-M Tab) 1 tab PO DAILY [facility] Last Admin: 11/26/18 09:35 Dose: 1 tab Simethicone (Mylicon Chew Tab) 80 mg PO Q8 PRN PRN Reason: Flatulence Last Admin: 11/25/18 16:51 Dose: 80 mg Spironolactone (Aldactone) 50 mg PO BID [facility] Last Admin: 11/27/18 10:16 Dose: 50 mg Tamsulosin HCl (Flomax) 0.4 mg PO QPM [facility] Last Admin: 11/26/18 17:16 Dose: 0.4 mg Vitamin B Complex/Vit C/Folic Acid (Nephro-Felicia) 1 tab PO DAILY [facility] Last Admin: 11/27/18 10:01 Dose: 1 tab - Labs Labs: 11/24/18 04:25 11/24/18 04:25 PT 16.8 Seconds (9.8-13.1) H 11/21/18 20:26 INR 1.5 11/21/18 20:26 APTT 36.0 Seconds (25.6-37.1) 11/21/18 20:26 - Head Exam Head Exam: NORMAL INSPECTION - Eye Exam Eye Exam: Normal appearance - Respiratory Exam Respiratory Exam: Clear to Ausculation Bilateral - Cardiovascular Exam Cardiovascular Exam: REGULAR RHYTHM - GI/Abdominal Exam GI & Abdominal Exam: Normal Bowel Sounds Assessment and Plan (1) UTI (urinary tract infection) Status: Acute (2) Ascites Status: Acute (3) Colitis Status: Acute (4) Constipation Status: Acute (5) Dehydration Status: Acute (6) Anemia Status: Acute (7) Bacteremia Status: Acute (8) Liver cirrhosis Status: Acute (9) Infection due to ESBL-producing Escherichia coli Status: Acute - Assessment and Plan (Free Text) Plan: Cont meds Cont tx Cont iv antibiotics
[2018-11-27] MEDS: Lactobacillus Acidophilus 500 MU Cap PO SCH ×2 (12:36→16:30)
[2018-11-27] MEDS: Multivitamin With Minerals Tab PO SCH (14:47)
[2018-11-28] MEDS: Meropenem 1 GM in Sodium Chloride 0.9% 100 ML IVPB SCH ×3 (01:12→17:32)
[2018-11-28] MEDS: metroNIDAZOLE 500mg/100ml NS 100 ML IVPB SCH (02:08)
--- NOTE | 2018-11-28 07:59 | CP.PCM.PN ---
Subjective - Date & Time of Evaluation Date of Evaluation: 11/27/18 Time of Evaluation: 11:00 - Subjective Subjective: Patient is stable Has no chest pain or SOB Has no fever. Tolerating medications well. Has normal bm Objective - Vital Signs/Intake and Output Vital Signs (last 24 hours): Temp Pulse Resp BP Pulse Ox 97.6 F 69 18 100/64 98 11/28/18 05:38 11/28/18 05:38 11/28/18 05:38 11/28/18 05:38 11/28/18 05:38 - Medications Medications: Current Medications Acetaminophen (Tylenol 325mg Tab) 650 mg PO Q4 PRN PRN Reason: Fever >100.4 F Last Admin: 11/24/18 14:49 Dose: 650 mg Bacitracin (Bacitracin Oint) 1 applic TOP BID [facility] Last Admin: 11/27/18 16:30 Dose: 1 applic Ferrous Sulfate (Feosol) 325 mg PO Q8 [facility] Last Admin: 11/28/18 01:11 Dose: 325 mg Furosemide (Lasix) 40 mg PO BID [facility] Last Admin: 11/27/18 17:24 Dose: Not Given Hydroxyzine HCl (Atarax) 25 mg PO Q6 PRN PRN Reason: Itching / Pruritus Last Admin: 11/24/18 22:00 Dose: 25 mg Meropenem 1 gm/ Sodium (Chloride) 100 mls @ 100 mls/hr IVPB Q8 [facility]; Protocol Last Admin: 11/28/18 01:12 Dose: 100 mls/hr Insulin Detemir (Levemir) 5 units SC BID@0900,2100 [facility] Last Admin: 11/27/18 22:38 Dose: 5 units Insulin Human Regular (Humulin R) 0 units SC ACHS [facility]; Protocol Last Admin: 11/27/18 22:33 Dose: Not Given Lactobacillus Acidophilus (Bacid Acidophilus) 1 cap PO BID [facility] Last Admin: 11/27/18 16:30 Dose: 1 cap Lactulose (Enulose) 20 gm PO BID [facility] Last Admin: 11/27/18 16:30 Dose: Not Given Metoclopramide HCl (Reglan) 5 mg PO Q12 [facility] Last Admin: 11/27/18 22:39 Dose: 5 mg Multivitamins/Minerals (Therapeutic-M Tab) 1 tab PO DAILY [facility] Last Admin: 11/27/18 14:47 Dose: Not Given Simethicone (Mylicon Chew Tab) 80 mg PO Q8 PRN PRN Reason: Flatulence Last Admin: 11/25/18 16:51 Dose: 80 mg Spironolactone (Aldactone) 50 mg PO BID [facility] Last Admin: 11/27/18 17:24 Dose: Not Given Tamsulosin HCl (Flomax) 0.4 mg PO QPM [facility] Last Admin: 11/27/18 22:38 Dose: 0.4 mg Vitamin B Complex/Vit C/Folic Acid (Nephro-Felicia) 1 tab PO DAILY [facility] Last Admin: 11/27/18 10:01 Dose: 1 tab - Labs Labs: 11/24/18 04:25 11/24/18 04:25 PT 16.8 Seconds (9.8-13.1) H 11/21/18 20:26 INR 1.5 11/21/18 20:26 APTT 36.0 Seconds (25.6-37.1) 11/21/18 20:26 - Head Exam Head Exam: NORMAL INSPECTION - Eye Exam Eye Exam: Normal appearance - ENT Exam ENT Exam: Mucous Membranes Moist - Respiratory Exam Respiratory Exam: Clear to Ausculation Bilateral - Cardiovascular Exam Cardiovascular Exam: REGULAR RHYTHM - GI/Abdominal Exam GI & Abdominal Exam: Normal Bowel Sounds Assessment and Plan (1) UTI (urinary tract infection) Status: Acute (2) Ascites Status: Acute (3) Colitis Status: Acute (4) Constipation Status: Acute (5) Dehydration Status: Acute (6) Anemia Status: Acute (7) Bacteremia Status: Acute (8) Liver cirrhosis Status: Acute (9) Infection due to ESBL-producing Escherichia coli Status: Acute - Assessment and Plan (Free Text) Plan: Cont meds Cont IV antibiotics Cont nursing care
[2018-11-28] MEDS: Insulin Regular 100 units/ml SC SCH ×5 (08:35→21:12)
[2018-11-28] MEDS: Lactobacillus Acidophilus 500 MU Cap PO SCH ×2 (10:23→17:41)
[2018-11-28] MEDS: Bacitracin OINT 15GM TOP SCH ×2 (10:24→17:30)
[2018-11-28] MEDS: Multivitamin With Minerals Tab PO SCH (10:25)
[2018-11-28] MEDS: Multivitamin Vitamin B Complex (Nephro-Vite) Tab PO SCH (10:34)
[2018-11-28] MEDS: Insulin Detemir 100 Units/ml Inj SC SCH ×2 (10:35→21:12)
--- NOTE | 2018-11-28 14:58 | CP.PCM.PN ---
Subjective - Date & Time of Evaluation Date of Evaluation: 11/28/18 Time of Evaluation: 08:00 - Subjective Subjective: afeb on IV antibiotics alert awake NAD Objective - Vital Signs/Intake and Output Vital Signs (last 24 hours): Temp Pulse Resp BP Pulse Ox 98 F 62 18 109/74 98 11/28/18 12:12 11/28/18 12:12 11/28/18 12:12 11/28/18 12:12 11/28/18 12:12 - Medications Medications: Current Medications Acetaminophen (Tylenol 325mg Tab) 650 mg PO Q4 PRN PRN Reason: Fever >100.4 F Last Admin: 11/24/18 14:49 Dose: 650 mg Bacitracin (Bacitracin Oint) 1 applic TOP BID [facility] Last Admin: 11/28/18 10:24 Dose: 1 applic Ferrous Sulfate (Feosol) 325 mg PO Q8 [facility] Last Admin: 11/28/18 10:25 Dose: 325 mg Furosemide (Lasix) 40 mg PO BID [facility] Last Admin: 11/28/18 10:34 Dose: 40 mg Hydroxyzine HCl (Atarax) 25 mg PO Q6 PRN PRN Reason: Itching / Pruritus Last Admin: 11/28/18 10:25 Dose: 25 mg Meropenem 1 gm/ Sodium (Chloride) 100 mls @ 100 mls/hr IVPB Q8 [facility]; Protocol Last Admin: 11/28/18 10:23 Dose: 100 mls/hr Insulin Detemir (Levemir) 5 units SC BID@0900,2100 [facility] Last Admin: 11/28/18 10:35 Dose: 5 units Insulin Human Regular (Humulin R) 0 units SC ACHS [facility]; Protocol Last Admin: 11/28/18 12:14 Dose: 2 unit Lactobacillus Acidophilus (Bacid Acidophilus) 1 cap PO BID [facility] Last Admin: 11/28/18 10:23 Dose: 1 cap Metoclopramide HCl (Reglan) 5 mg PO Q12 [facility] Last Admin: 11/28/18 10:25 Dose: 5 mg Multivitamins/Minerals (Therapeutic-M Tab) 1 tab PO DAILY [facility] Last Admin: 11/28/18 10:25 Dose: 1 tab Rifaximin (Xifaxan) 550 mg PO BID [facility]; Protocol Last Admin: 11/28/18 12:13 Dose: 550 mg Simethicone (Mylicon Chew Tab) 80 mg PO Q8 PRN PRN Reason: Flatulence Last Admin: 11/25/18 16:51 Dose: 80 mg Spironolactone (Aldactone) 50 mg PO BID [facility] Last Admin: 11/28/18 10:25 Dose: 50 mg Tamsulosin HCl (Flomax) 0.4 mg PO QPM [facility] Last Admin: 11/27/18 22:38 Dose: 0.4 mg Vitamin B Complex/Vit C/Folic Acid (Nephro-Felicia) 1 tab PO DAILY [facility] Last Admin: 11/28/18 10:34 Dose: 1 tab - Labs Labs: 11/24/18 04:25 11/24/18 04:25 PT 16.8 Seconds (9.8-13.1) H 11/21/18 20:26 INR 1.5 11/21/18 20:26 APTT 36.0 Seconds (25.6-37.1) 11/21/18 20:26 - Constitutional Appears: Non-toxic, Chronically Ill - Head Exam Head Exam: NORMOCEPHALIC - Eye Exam Eye Exam: absent: Scleral icterus - ENT Exam ENT Exam: Mucous Membranes Dry - Neck Exam Neck Exam: absent: Lymphadenopathy - Respiratory Exam Respiratory Exam: Decreased Breath Sounds - Cardiovascular Exam Cardiovascular Exam: REGULAR RHYTHM - GI/Abdominal Exam GI & Abdominal Exam: Distended, Soft - Rectal Exam Rectal Exam: Deferred - Exam Exam: NORMAL INSPECTION - Extremities Exam Extremities Exam: absent: Full ROM, Pedal Edema - Back Exam Back Exam: absent: CVA tenderness (L), CVA tenderness (R) - Neurological Exam Neurological Exam: Alert, Awake, CN II-XII Intact Assessment and Plan (1) Ascites Status: Acute (2) Severe sepsis Status: Acute (3) UTI (urinary tract infection) Status: Acute (4) Bacteremia Status: Acute (5) Liver cirrhosis Status: Acute (6) Infection due to ESBL-producing Escherichia coli Status: Acute - Assessment and Plan (Free Text) Assessment: cont iv rx for 14 days gu follow up
[2018-11-28] MEDS: Simethicone 80 mg Chewtab PO PRN (17:32)
[2018-11-29] MEDS: Meropenem 1 GM in Sodium Chloride 0.9% 100 ML IVPB SCH ×3 (01:44→16:46)
[2018-11-29] MEDS: Insulin Regular 100 units/ml SC SCH ×4 (08:30→21:27)
[2018-11-29] MEDS: Bacitracin OINT 15GM TOP SCH ×2 (09:24→16:43)
[2018-11-29] MEDS: Insulin Detemir 100 Units/ml Inj SC SCH ×2 (09:27→21:26)
[2018-11-29] MEDS: Multivitamin Vitamin B Complex (Nephro-Vite) Tab PO SCH (09:28)
[2018-11-29] MEDS: Multivitamin With Minerals Tab PO SCH (09:29)
[2018-11-29] MEDS: Lactobacillus Acidophilus 500 MU Cap PO SCH ×2 (09:34→16:49)
[2018-11-29 12:10] LABS: HEMOGLOBIN 11.2 g/dL (12.0-18.0); MEAN CELL VOLUME 96.7 fl (80.0-94.0); MEAN CORPUSCULAR HEMOGLOBIN 32.1 pg (27.0-31.0); MEAN CORPUSCULAR HGB CONC 33.2 g/dL (33.0-37.0); RBC 3.49 Mil/uL (4.40-5.90); RED CELL DISTRIBUTION WIDTH 17.7 % (11.5-14.5); WHITE BLOOD COUNT 7.1 K/uL (4.8-10.8)
[2018-11-29 12:23] LABS: ALBUMIN 2.6 g/dL (3.5-5.0)
[2018-11-29 12:32] LABS: ALT/SGPT 66 U/L (21-72); AST/SGOT 164 U/L (17-59); BLOOD UREA NITROGEN 17 mg/dl (9-20); CALCIUM 8.1 mg/dL (8.4-10.2); GFR NON-AFRICAN AMERICAN > 60
[2018-11-29 12:33] LABS: ALB/GLOB RATIO 0.7 (1.0-2.1)
[2018-11-30] MEDS: Meropenem 1 GM in Sodium Chloride 0.9% 100 ML IVPB SCH ×3 (00:20→17:18)
[2018-11-30] MEDS: Insulin Regular 100 units/ml SC SCH ×4 (07:30→22:40)
[2018-11-30 07:31] LABS: ALB/GLOB RATIO 0.7 (1.0-2.1); ALBUMIN 2.4 g/dL (3.5-5.0); ALT/SGPT 67 U/L (21-72); AST/SGOT 142 U/L (17-59); BLOOD UREA NITROGEN 16 mg/dl (9-20); GFR NON-AFRICAN AMERICAN > 60
[2018-11-30] MEDS: Insulin Detemir 100 Units/ml Inj SC SCH ×2 (09:00→22:41)
[2018-11-30] MEDS: Bacitracin OINT 15GM TOP SCH ×2 (10:51→17:16)
[2018-11-30] MEDS: Multivitamin Vitamin B Complex (Nephro-Vite) Tab PO SCH (10:55)
[2018-11-30] MEDS: Multivitamin With Minerals Tab PO SCH (10:55)
[2018-11-30] MEDS: Lactobacillus Acidophilus 500 MU Cap PO SCH ×2 (10:57→17:26)
--- NOTE | 2018-11-30 12:58 | CP.PCM.PN ---
Subjective - Date & Time of Evaluation Date of Evaluation: 11/30/18 Time of Evaluation: 08:00 - Subjective Subjective: afebrile on IV antibiotics Objective - Vital Signs/Intake and Output Vital Signs (last 24 hours): Temp Pulse Resp BP Pulse Ox 98.2 F 60 20 103/67 98 11/30/18 11:56 11/30/18 11:56 11/30/18 11:56 11/30/18 11:56 11/30/18 11:56 - Medications Medications: Current Medications Acetaminophen (Tylenol 325mg Tab) 650 mg PO Q4 PRN PRN Reason: Fever >100.4 F Last Admin: 11/24/18 14:49 Dose: 650 mg Bacitracin (Bacitracin Oint) 1 applic TOP BID [facility] Last Admin: 11/30/18 10:51 Dose: 1 applic Ferrous Sulfate (Feosol) 325 mg PO Q8 [facility] Last Admin: 11/30/18 10:51 Dose: 325 mg Furosemide (Lasix) 40 mg PO BID [facility] Last Admin: 11/30/18 10:52 Dose: 40 mg Hydroxyzine HCl (Atarax) 25 mg PO Q6 PRN PRN Reason: Itching / Pruritus Last Admin: 11/28/18 10:25 Dose: 25 mg Meropenem 1 gm/ Sodium (Chloride) 100 mls @ 100 mls/hr IVPB Q8 [facility]; Protocol Last Admin: 11/30/18 10:54 Dose: 100 mls/hr Insulin Detemir (Levemir) 5 units SC BID@0900,2100 [facility] Last Admin: 11/30/18 09:00 Dose: Not Given Insulin Human Regular (Humulin R) 0 units SC ACHS [facility]; Protocol Last Admin: 11/30/18 07:30 Dose: Not Given Lactobacillus Acidophilus (Bacid Acidophilus) 1 cap PO BID [facility] Last Admin: 11/30/18 10:57 Dose: 1 cap Metoclopramide HCl (Reglan) 5 mg PO Q12 [facility] Last Admin: 11/30/18 10:55 Dose: 5 mg Multivitamins/Minerals (Therapeutic-M Tab) 1 tab PO DAILY [facility] Last Admin: 11/30/18 10:55 Dose: 1 tab Rifaximin (Xifaxan) 550 mg PO BID [facility]; Protocol Last Admin: 11/30/18 10:55 Dose: 550 mg Simethicone (Mylicon Chew Tab) 80 mg PO Q8 PRN PRN Reason: Flatulence Last Admin: 11/28/18 17:32 Dose: 80 mg Spironolactone (Aldactone) 50 mg PO BID [facility] Last Admin: 11/30/18 10:51 Dose: 50 mg Tamsulosin HCl (Flomax) 0.4 mg PO QPM [facility] Last Admin: 11/29/18 18:05 Dose: 0.4 mg Vitamin B Complex/Vit C/Folic Acid (Nephro-Felicia) 1 tab PO DAILY [facility] Last Admin: 11/30/18 10:55 Dose: 1 tab - Labs Labs: 11/29/18 12:00 11/30/18 05:20 PT 16.8 Seconds (9.8-13.1) H 11/21/18 20:26 INR 1.5 11/21/18 20:26 APTT 36.0 Seconds (25.6-37.1) 11/21/18 20:26 - Constitutional Appears: Non-toxic, Chronically Ill - Head Exam Head Exam: NORMOCEPHALIC - Eye Exam Eye Exam: absent: Scleral icterus - ENT Exam ENT Exam: Mucous Membranes Dry - Neck Exam Neck Exam: absent: Lymphadenopathy - Respiratory Exam Respiratory Exam: Decreased Breath Sounds - Cardiovascular Exam Cardiovascular Exam: REGULAR RHYTHM - GI/Abdominal Exam GI & Abdominal Exam: Distended - Rectal Exam Rectal Exam: Deferred - Exam Exam: NORMAL INSPECTION - Extremities Exam Extremities Exam: absent: Pedal Edema - Back Exam Back Exam: absent: CVA tenderness (L), CVA tenderness (R) - Neurological Exam Neurological Exam: Alert, Awake, Oriented x3 Assessment and Plan (1) Ascites Status: Acute (2) Severe sepsis Status: Acute (3) UTI (urinary tract infection) Status: Acute (4) Bacteremia Status: Acute (5) Liver cirrhosis Status: Acute (6) Infection due to ESBL-producing Escherichia coli Status: Acute - Assessment and Plan (Free Text) Assessment: cont rx for 14 days total
[2018-11-30 15:48] LABS: GAMMA GLUTAMYL TRANSPEPTIDASE 829 U/L (8-78)
[2018-12-01] MEDS: Meropenem 1 GM in Sodium Chloride 0.9% 100 ML IVPB SCH ×2 (00:57→09:35)
[2018-12-01] MEDS: Insulin Regular 100 units/ml SC SCH (06:42)
[2018-12-01] MEDS: Bacitracin OINT 15GM TOP SCH (09:37)
[2018-12-01] MEDS: Lactobacillus Acidophilus 500 MU Cap PO SCH (09:37)
[2018-12-01] MEDS: Insulin Detemir 100 Units/ml Inj SC SCH (09:38)
[2018-12-01] MEDS: Multivitamin Vitamin B Complex (Nephro-Vite) Tab PO SCH (09:39)
[2018-12-01] MEDS: Multivitamin With Minerals Tab PO SCH (09:40)
--- NOTE | 2018-12-01 11:35 | CP.PCM.PN ---
Subjective - Date & Time of Evaluation Date of Evaluation: 12/02/18 Time of Evaluation: 09:00 - Subjective Subjective: afeb wants to leave Objective - Vital Signs/Intake and Output Vital Signs (last 24 hours): Temp Pulse Resp BP Pulse Ox 98.2 F 62 20 104/66 99 12/01/18 07:55 12/01/18 07:55 12/01/18 07:55 12/01/18 09:37 12/01/18 07:55 - Medications Medications: Current Medications Acetaminophen (Tylenol 325mg Tab) 650 mg PO Q4 PRN PRN Reason: Fever >100.4 F Last Admin: 11/24/18 14:49 Dose: 650 mg Bacitracin (Bacitracin Oint) 1 applic TOP BID [facility] Last Admin: 12/01/18 09:37 Dose: 1 applic Ferrous Sulfate (Feosol) 325 mg PO Q8 [facility] Last Admin: 12/01/18 09:37 Dose: 325 mg Furosemide (Lasix) 40 mg PO BID [facility] Last Admin: 12/01/18 09:37 Dose: 40 mg Hydroxyzine HCl (Atarax) 25 mg PO Q6 PRN PRN Reason: Itching / Pruritus Last Admin: 11/28/18 10:25 Dose: 25 mg Meropenem 1 gm/ Sodium (Chloride) 100 mls @ 100 mls/hr IVPB Q8 [facility]; Protocol Last Admin: 12/01/18 09:35 Dose: 100 mls/hr Insulin Detemir (Levemir) 5 units SC BID@0900,2100 [facility] Last Admin: 12/01/18 09:38 Dose: 5 units Insulin Human Regular (Humulin R) 0 units SC ACHS [facility]; Protocol Last Admin: 12/01/18 06:42 Dose: 2 unit Lactobacillus Acidophilus (Bacid Acidophilus) 1 cap PO BID [facility] Last Admin: 12/01/18 09:37 Dose: 1 cap Metoclopramide HCl (Reglan) 5 mg PO Q12 [facility] Last Admin: 12/01/18 09:39 Dose: 5 mg Multivitamins/Minerals (Therapeutic-M Tab) 1 tab PO DAILY [facility] Last Admin: 12/01/18 09:40 Dose: 1 tab Rifaximin (Xifaxan) 550 mg PO BID [facility]; Protocol Last Admin: 12/01/18 09:40 Dose: 550 mg Simethicone (Mylicon Chew Tab) 80 mg PO Q8 PRN PRN Reason: Flatulence Last Admin: 11/28/18 17:32 Dose: 80 mg Spironolactone (Aldactone) 50 mg PO BID [facility] Last Admin: 12/01/18 09:36 Dose: 50 mg Tamsulosin HCl (Flomax) 0.4 mg PO QPM [facility] Last Admin: 11/30/18 17:16 Dose: 0.4 mg Vitamin B Complex/Vit C/Folic Acid (Nephro-Felicia) 1 tab PO DAILY [facility] Last Admin: 12/01/18 09:39 Dose: 1 tab - Labs Labs: 11/29/18 12:00 11/30/18 05:20 PT 16.8 Seconds (9.8-13.1) H 11/21/18 20:26 INR 1.5 11/21/18 20:26 APTT 36.0 Seconds (25.6-37.1) 11/21/18 20:26 - Constitutional Appears: Non-toxic, Chronically Ill - Head Exam Head Exam: NORMOCEPHALIC - Eye Exam Eye Exam: absent: Scleral icterus - ENT Exam ENT Exam: Mucous Membranes Dry - Neck Exam Neck Exam: absent: Lymphadenopathy - Respiratory Exam Respiratory Exam: Decreased Breath Sounds - Cardiovascular Exam Cardiovascular Exam: REGULAR RHYTHM - GI/Abdominal Exam GI & Abdominal Exam: Distended, Soft - Rectal Exam Rectal Exam: Deferred - Exam Exam: NORMAL INSPECTION - Extremities Exam Extremities Exam: absent: Pedal Edema - Back Exam Back Exam: absent: CVA tenderness (L), CVA tenderness (R) Assessment and Plan (1) Ascites Status: Acute (2) Severe sepsis Status: Acute (3) UTI (urinary tract infection) Status: Acute (4) Bacteremia Status: Acute (5) Liver cirrhosis Status: Acute (6) Infection due to ESBL-producing Escherichia coli Status: Acute - Assessment and Plan (Free Text) Assessment: cont iv invanz asa out patient
[2018-12-01] MEDS ORDERED: Lidocaine 1% Inj (20ml) ONE (13:41)
--- NOTE | 2018-12-01 14:01 | PCM.SURG1 ---
Surgeon's Initial Post Op Note - Surgeon's Notes Surgeon: Charly Kenney MD Clerk Travel Reservations: NONE Type of Anesthesia: Local Pre-Operative Diagnosis: Infection Operative Findings: US showed patent right basilic vein Post-Operative Diagnosis: Infection Operation Performed: Singlel lumen picc placement right arm, 33 cm. Specimen/Specimens Removed: NONE Estimated Blood Loss: EBL {In ML}: 2 Blood Products Given: N/A Drains Used: No Drains Post-Op Condition: Fair Date of Surgery/Procedure: 12/01/18 Time of Surgery/Procedure: 13:55
[2018-12-01 15:42] VITALS: BP 109/70; PULSE 65; RESP 16; TEMP 97.9; O2SAT 100
--- NOTE | 2018-12-01 16:45 | CARD ---
APPROVED REPORT Date of service: 11/30/2018 EKG Measurement Heart [id number] <Conclusion> Normal sinus rhythm Left axis deviation Low voltage QRS Possible Anterolateral infarct, age undetermined Abnormal ECG
--- NOTE | 2018-12-03 14:36 | VASCULAR ---
PROCEDURE: Date of procedure: 12/01/2018 Procedure: 1. Placement of a right arm PICC with ultrasound and fluoroscopic guidance, CPT 63636 2. PICC tip confirmation with spot radiograph and is in the superior vena cava Medications: 1 percent lidocaine Total Fluoro time: 2.9 Seconds Radiation: 0.34 MGy EBL: 2 cc HISTORY: Infection requiring long-term IV antibiotics TECHNIQUE: Following informed consent and procedure time-out, the patient was placed supine on the interventional table and the right arm prepped and draped in the usual sterile fashion. Ultrasound showed a patent and compressible right basilic vein. After the skin was anesthetized with lidocaine, the basilic vein was accessed with micro micropuncture technique using ultrasound guidance. A guidewire was then advanced under fluoroscopic guidance into the superior vena cava. An image documenting ultrasound guidance for vascular access was permanently saved. The length of the single-lumen 4 [place] PICC was trimmed to 33 centimeters and advanced through a peel-away sheath. The PICC was position with tip of PICC confirm a spot radiograph the superior vena cava. The PICC was secured to the patient's skin. The PICC was flushed. A biopatch and sterile dressing was applied. IMPRESSION: Placement of a single-lumen 4 [place] PICC trimmed to 33 centimeters via right basilic vein. The tip of the PICC is confirmed with spot radiograph and is in the superior vena cava.
--- NOTE | 2018-12-04 07:27 | CP.PCM.PN ---
Subjective - Date & Time of Evaluation Date of Evaluation: 11/28/18 Time of Evaluation: 10:00 - Subjective Subjective: patient is stable On Iv antibiotics Has no fever Objective - Vital Signs/Intake and Output Vital Signs (last 24 hours): Temp Pulse Resp BP Pulse Ox 97.9 F 65 16 109/70 100 12/01/18 15:41 12/01/18 15:41 12/01/18 15:41 12/01/18 15:41 12/01/18 15:41 - Labs Labs: 11/29/18 12:00 11/30/18 05:20 PT 16.8 Seconds (9.8-13.1) H 11/21/18 20:26 INR 1.5 11/21/18 20:26 APTT 36.0 Seconds (25.6-37.1) 11/21/18 20:26 - Head Exam Head Exam: NORMAL INSPECTION - Eye Exam Eye Exam: Normal appearance - ENT Exam ENT Exam: Mucous Membranes Moist - Respiratory Exam Respiratory Exam: Clear to Ausculation Bilateral - Cardiovascular Exam Cardiovascular Exam: REGULAR RHYTHM - GI/Abdominal Exam GI & Abdominal Exam: Normal Bowel Sounds Assessment and Plan (1) UTI (urinary tract infection) Status: Acute (2) Ascites Status: Acute (3) Colitis Status: Acute (4) Constipation Status: Acute (5) Dehydration Status: Acute (6) Anemia Status: Acute (7) Bacteremia Status: Acute (8) Liver cirrhosis Status: Acute (9) Infection due to ESBL-producing Escherichia coli Status: Acute - Assessment and Plan (Free Text) Plan: Cont meds Cont tx Cont iv antibiotics
--- NOTE | 2018-12-04 07:32 | CP.PCM.PN ---
Subjective - Date & Time of Evaluation Date of Evaluation: 11/29/18 Time of Evaluation: 11:00 - Subjective Subjective: Patient remains stable Has no fever. Has no chest pain or SOB Objective - Vital Signs/Intake and Output Vital Signs (last 24 hours): Temp Pulse Resp BP Pulse Ox 97.9 F 65 16 109/70 100 12/01/18 15:41 12/01/18 15:41 12/01/18 15:41 12/01/18 15:41 12/01/18 15:41 - Labs Labs: 11/29/18 12:00 11/30/18 05:20 PT 16.8 Seconds (9.8-13.1) H 11/21/18 20:26 INR 1.5 11/21/18 20:26 APTT 36.0 Seconds (25.6-37.1) 11/21/18 20:26 - Head Exam Head Exam: NORMAL INSPECTION - Eye Exam Eye Exam: Normal appearance - ENT Exam ENT Exam: Mucous Membranes Moist - Respiratory Exam Respiratory Exam: Clear to Ausculation Bilateral - Cardiovascular Exam Cardiovascular Exam: REGULAR RHYTHM Assessment and Plan (1) UTI (urinary tract infection) Status: Acute (2) Ascites Status: Acute (3) Colitis Status: Acute (4) Constipation Status: Acute (5) Dehydration Status: Acute (6) Anemia Status: Acute (7) Bacteremia Status: Acute (8) Liver cirrhosis Status: Acute (9) Infection due to ESBL-producing Escherichia coli Status: Acute - Assessment and Plan (Free Text) Plan: Cont meds Cont tx Cont iv antibiotics
--- NOTE | 2018-12-04 07:35 | CP.PCM.PN ---
Subjective - Date & Time of Evaluation Date of Evaluation: 11/30/18 Time of Evaluation: 10:30 - Subjective Subjective: patient is stable Still needs two more days of iv antibiotics. Has no fever. Objective - Vital Signs/Intake and Output Vital Signs (last 24 hours): Temp Pulse Resp BP Pulse Ox 97.9 F 65 16 109/70 100 12/01/18 15:41 12/01/18 15:41 12/01/18 15:41 12/01/18 15:41 12/01/18 15:41 - Labs Labs: 11/29/18 12:00 11/30/18 05:20 PT 16.8 Seconds (9.8-13.1) H 11/21/18 20:26 INR 1.5 11/21/18 20:26 APTT 36.0 Seconds (25.6-37.1) 11/21/18 20:26 - Head Exam Head Exam: NORMAL INSPECTION - Eye Exam Eye Exam: Normal appearance - ENT Exam ENT Exam: Mucous Membranes Moist - Respiratory Exam Respiratory Exam: Clear to Ausculation Bilateral - Cardiovascular Exam Cardiovascular Exam: REGULAR RHYTHM - GI/Abdominal Exam GI & Abdominal Exam: Normal Bowel Sounds Assessment and Plan (1) UTI (urinary tract infection) Status: Acute (2) Ascites Status: Acute (3) Colitis Status: Acute (4) Constipation Status: Acute (5) Dehydration Status: Acute (6) Anemia Status: Acute (7) Bacteremia Status: Acute (8) Liver cirrhosis Status: Acute (9) Infection due to ESBL-producing Escherichia coli Status: Acute - Assessment and Plan (Free Text) Plan: Cont meds Cont tx Cont iv antibiotics
--- NOTE | 2018-12-04 07:49 | CP.PCM.DIS ---
Provider - Provider Date of Admission: 11/21/18 22:46 Attending physician: Hank Tomlinson MD Consults: 11/22/18 02:48 Pastoral Care Referral Routine Comment: Physician Instructions: Reason For Exam: New admission 11/24/18 10:58 Infectious Disease Consult Routine Comment: Consulting Provider: Elder Zurita Consulting Physician: Elder Zurita Reason for Consult: +urine and blood cultures Time Spent in preparation of Discharge (in minutes): 30 Diagnosis - Discharge Diagnosis (1) UTI (urinary tract infection) Status: Acute (2) Ascites Status: Acute (3) Colitis Status: Acute (4) Constipation Status: Acute (5) Dehydration Status: Acute (6) Anemia Status: Acute (7) Bacteremia Status: Acute (8) Liver cirrhosis Status: Acute (9) Infection due to ESBL-producing Escherichia coli Status: Acute Hospital Course - Lab Results Lab Results: Micro Results 11/26/18 14:00 Blood-Venous Blood Culture - Final NO GROWTH AFTER 5 DAYS 11/26/18 14:00 Blood-Venous Gram Stain - Final TEST NOT PERFORMED 11/26/18 14:00 Blood-Venous Blood Culture - Final NO GROWTH AFTER 5 DAYS 11/26/18 14:00 Blood-Venous Gram Stain - Final TEST NOT PERFORMED 11/28/18 04:00 Urine,Clean Catch Urine Culture - Final No Growth (<1,000 CFU/ML) 11/21/18 20:26 Blood Blood Culture - Final Escherichia Coli 11/21/18 20:26 Blood Gram Stain - Final 11/21/18 20:59 Blood Blood Culture - Final Escherichia Coli 11/21/18 20:59 Blood Gram Stain - Final 11/21/18 21:39 Urine Urine Culture - Final Escherichia Coli Most Recent Lab Values WBC 7.1 K/uL (4.8-10.8) 11/29/18 12:00 RBC 3.49 Mil/uL (4.40-5.90) L 11/29/18 12:00 Hgb 11.2 g/dL (12.0-18.0) L 11/29/18 12:00 Hct 33.7 % (35.0-51.0) L 11/29/18 12:00 MCV 96.7 fl (80.0-94.0) H 11/29/18 12:00 MCH 32.1 pg (27.0-31.0) H 11/29/18 12:00 MCHC 33.2 g/dL (33.0-37.0) 11/29/18 12:00 RDW 17.7 % (11.5-14.5) H 11/29/18 12:00 Plt Count 236 K/uL (130-400) D 11/29/18 12:00 MPV 9.3 fl (7.2-11.7) 11/24/18 04:25 Neut % (Auto) 81.7 % (50.0-75.0) H 11/24/18 04:25 Lymph % (Auto) 7.7 % (20.0-40.0) L 11/24/18 04:25 [place] % (Auto) 9.6 % (0.0-10.0) 11/24/18 04:25 Eos % (Auto) 0.7 % (0.0-4.0) 11/24/18 04:25 Baso % (Auto) 0.3 % (0.0-2.0) 11/24/18 04:25 Neut # (Auto) 8.7 K/uL (1.8-7.0) H 11/24/18 04:25 Lymph # (Auto) 0.8 K/uL (1.0-4.3) L 11/24/18 04:25 [place] # (Auto) 1.0 K/uL (0.0-0.8) H 11/24/18 04:25 Eos # (Auto) 0.1 K/uL (0.0-0.7) 11/24/18 04:25 Baso # (Auto) 0.0 K/uL (0.0-0.2) 11/24/18 04:25 Neutrophils % (Manual) 76 % (42-75) H 11/21/18 20:26 Band Neutrophils % 11 % (0-2) H* 11/21/18 20:26 Lymphocytes % (Manual) 3 % (20-50) L 11/21/18 20:26 Monocytes % (Manual) 10 % (0-10) 11/21/18 20:26 Platelet Estimate Normal (NORMAL) 11/21/18 20:26 Poikilocytosis (manual Slight 11/21/18 20:26 Anisocytosis (manual) Slight 11/21/18 20:26 PT 16.8 Seconds (9.8-13.1) H 11/21/18 20:26 INR 1.5 11/21/18 20:26 APTT 36.0 Seconds (25.6-37.1) 11/21/18 20:26 pO2 40 mm/Hg (30-55) 11/21/18 22:31 VBG pH 7.39 (7.32-7.43) 11/21/18 22:31 VBG pCO2 36 mmHg (40-60) L 11/21/18 22:31 VBG HCO3 22.3 mmol/L 11/21/18 22:31 VBG Total CO2 22.9 mmol/L (22-28) 11/21/18 22:31 VBG O2 Sat (Calc) 79.5 % (40-65) H 11/21/18 22:31 VBG Base Excess -2.6 mmol/L (0.0-2.0) L 11/21/18 22:31 VBG Potassium 4.4 mmol/L (3.6-5.2) 11/21/18 22:31 Sodium 126.0 mmol/L (132-148) L 11/21/18 22:31 Chloride 96.0 mmol/L (98-107) L 11/21/18 22:31 Glucose 353 mg/dL (75-110) H 11/21/18 22:31 Lactate 3.8 mmol/L (0.7-2.1) H 11/21/18 22:31 FiO2 21.0 % 11/21/18 22:31 Sodium 132 mmol/l (132-148) 11/30/18 05:20 Potassium 4.7 MMOL/L (3.6-5.0) 11/30/18 05:20 Chloride 98 mmol/L (98-107) 11/30/18 05:20 Carbon Dioxide 28 mmol/L (22-30) 11/30/18 05:20 Anion Gap 11 (10-20) 11/30/18 05:20 BUN 16 mg/dl (9-20) 11/30/18 05:20 Creatinine 0.7 mg/dl (0.8-1.5) L 11/30/18 05:20 Est GFR ( Amer) > 60 11/30/18 05:20 Est GFR (Non-Af Amer) > 60 11/30/18 05:20 POC Glucose (mg/dL) 231 mg/dL (65-110) H 12/01/18 10:50 Random Glucose 147 mg/dL (75-110) H 11/30/18 05:20 Lactic Acid 1.9 MMOL/L (0.7-2.1) 11/22/18 08:00 Calcium 8.0 mg/dL (8.4-10.2) L 11/30/18 05:20 Phosphorus 2.4 mg/dl (2.5-4.5) L 11/21/18 20:26 Magnesium 1.9 MG/DL (1.6-2.3) 11/21/18 20:26 Total Bilirubin 1.8 mg/dl (0.2-1.3) H 11/30/18 05:20 GGT 829 U/L (8-78) H 11/30/18 05:20 AST 142 U/L (17-59) H 11/30/18 05:20 ALT 67 U/L (21-72) 11/30/18 05:20 Alkaline Phosphatase 594 U/L (38-126) H 11/30/18 05:20 Ammonia 9 umo/L (16-60) L 11/24/18 04:25 Troponin I 0.0120 ng/mL (0.00-0.120) 11/21/18 20:26 Total Protein 6.0 G/DL (6.3-8.2) L 11/30/18 05:20 Albumin 2.4 g/dL (3.5-5.0) L 11/30/18 05:20 Globulin 3.6 gm/dL (2.2-3.9) 11/30/18 05:20 Albumin/Globulin Ratio 0.7 (1.0-2.1) L 11/30/18 05:20 Prostate Specific Ag 0.627 ng/ML (0.00-4.0) 11/25/18 04:15 Venous Blood Potassium 4.4 mmol/L (3.6-5.2) 11/21/18 22:31 Urine Color Yellow (YELLOW) 11/21/18 21:39 Urine Clarity Cloudy (Clear) 11/21/18 21:39 Urine pH 5.0 (5.0-8.0) 11/21/18 21:39 Ur Specific [place] 1.015 (1.003-1.030) 11/21/18 21:39 Urine Protein 100 mg/dL (NEGATIVE) 11/21/18 21:39 Urine Glucose (UA) Neg mg/dL (NEGATIVE) 11/21/18 21:39 Urine Ketones Negative mg/dL (NEGATIVE) 11/21/18 21:39 Urine Blood Small (NEGATIVE) 11/21/18 21:39 Urine Nitrate Negative (NEGATIVE) 11/21/18 21:39 Urine Bilirubin Negative (NEGATIVE) 11/21/18 21:39 Urine Urobilinogen 0.2-1.0 mg/dL (0.2-1.0) 11/21/18 21:39 Ur Leukocyte Esterase Large Subha/uL (Negative) 11/21/18 21:39 Urine RBC (Auto) 16 /hpf (0-3) H 11/21/18 21:39 Urine WBC Clumps (Auto) Occ /hpf (NONE) H 11/21/18 21:39 Urine Microscopic WBC 411 /hpf (0-5) H 11/21/18 21:39 Ur Squamous Epith Cells 2 /hpf (0-5) 11/21/18 21:39 Urine Bacteria Many (<OCC) H 11/21/18 21:39 Hyaline Casts 3-5 /hpf (0-2) H 11/21/18 21:39 - Hospital Course Hospital Course: This is a 63 y/o male with ascites was admitted for gen debility fever. Noted to have bacteremia and UTI and noted to have ESBL. Dr Zurita was called for consult. He was started on Cipro but was resistant and was switched to Merem then Invanz. He tolerated medications well. He was sent home on PICC line and will continue IV tx at home. Discharge Exam - Head Exam Head Exam: NORMAL INSPECTION - Eye Exam Eye Exam: Normal appearance - Respiratory Exam Respiratory Exam: Clear to PA & Lateral - Cardiovascular Exam Cardiovascular Exam: REGULAR RHYTHM - GI/Abdominal Exam GI & Abdominal Exam: Normal Bowel Sounds Discharge Plan - Discharge Medications Prescriptions: Ertapenem 1gm in NS 50ml [Invanz] 1 gm IV DAILY #6 bag - Follow Up Plan Condition: GUARDED Disposition: HOME/ ROUTINE Instructions: Urinary Tract Infection, Adult (DC), Fluid in the Belly (Ascites) (DC), Multidrug Resistant Organisms (DC) Additional Instructions: follow up with in 1 week follow up with pmd in 1 week keep picc line dressing dry and clean. Referrals: Dean Boss MD [Family Provider] - Hank Tomlinson MD [Staff Provider] - Elder Zurita MD [Staff Provider] -
== END 2018-12-01 16:20 | disposition home or self-care (01) | DRG 872 ==
LOC: H.ER 18:54 → H.ERHOLD 22:46 → H.TEL 11-22 01:56
PROVIDERS: ADMIT Family Medicine; ATTEND Family Medicine
PROC: 02HV33Z Insertion of Infusion Device into Superior Vena Cava, Percutaneous Approach (ICD-10-PCS; principal; 2018-12-01)
PROC: B518ZZA Fluoroscopy of Superior Vena Cava, Guidance (ICD-10-PCS; 2018-12-01)
PROC: B548ZZA Ultrasonography of Superior Vena Cava, Guidance (ICD-10-PCS; 2018-12-01)
DX: A41.9 Sepsis, unspecified organism (principal); N39.0 Urinary tract infection, site not specified; R18.8 Other ascites; E86.0 Dehydration; I12.9 Hypertensive chronic kidney disease with stage 1 through stage 4 chronic kidney disease, or unspecified chronic kidney disease; J45.909 Unspecified asthma, uncomplicated; K52.9 Noninfective gastroenteritis and colitis, unspecified; K59.00 Constipation, unspecified; K74.60 Unspecified cirrhosis of liver; N18.9 Chronic kidney disease, unspecified; N20.0 Calculus of kidney; B96.20 Unspecified Escherichia coli [E. coli] as the cause of diseases classified elsewhere; D64.9 Anemia, unspecified; E11.22 Type 2 diabetes mellitus with diabetic chronic kidney disease; R65.20 Severe sepsis without septic shock; Z16.12 Extended spectrum beta lactamase (ESBL) resistance; Z16.23 Resistance to quinolones and fluoroquinolones; Z87.442 Personal history of urinary calculi; Z90.49 Acquired absence of other specified parts of digestive tract; K82.9 Disease of gallbladder, unspecified